=== PATIENT | female | born 1940 | race Caucasian/White ===

== ENCOUNTER 2021-03-06 08:47 | Emergency (ER) | payer MEDICARE, OTHER, SELFPAY ==
--- NOTE | ~2021-03-06 | US_ITS ---
EXAMINATION: US VENOUS ULTRASOUND WITH DOPPLER LOWER EXTREMITY, LEFT CLINICAL INFORMATION: Left lower extremity pain and swelling. Assess for occult DVT. COMPARISON: Radiographs left knee 03/06/2021 TECHNIQUE: Ultrasound of the deep veins is performed from the hip to the calf with compression sonography and color and pulse Doppler assessment. Spectral analysis with color-flow imaging is performed. FINDINGS: There is normal venous compression and respiratory variation and augmented flow. The visualized common femoral vein, superficial femoral vein, profunda femoral vein, popliteal vein, and the trifurcation region shows no evidence of deep venous thrombosis. Popliteal vein is not visualized with certainty. No popliteal fossa cyst demonstrated. US/US venous duplex LE LT IMPRESSION: 1. No DVT demonstrated in the left lower extremity. 2. If the patient's symptoms persist, followup ultrasound in 5 days 7 days might be of value to exclude proximal propagation from a non-visualized calf vein.
--- NOTE | ~2021-03-06 | XR_ITS ---
EXAMINATION: XR KNEE, LEFT CLINICAL INFORMATION: Pain COMPARISON: Previous x-ray May 2017 TECHNIQUE: Four views of the left knee. FINDINGS: Bone alignment is normal. No fracture or dislocation is seen. Joint spaces are normal. There is a small osteophyte at the quadriceps tendon insertion to the patella. There is a small joint effusion. XR/XR knee LT 4V IMPRESSION: Small joint effusion. Small patellar osteophyte.
[2021-03-06 08:56] VITALS: RESP 16; TEMP 37.1; O2SAT 98; BMI 36.6
[2021-03-06 09:03] VITALS: BP 173/75
--- NOTE | 2021-03-06 09:17 | ED.EXTPRO ---
HPI - Extremity Problem General Chief complaint: Extremity Injury, Lower Stated complaint: swollen/painful leg Time Seen by Provider: 03/06/21 08:56 Source: patient and EMS Mode of arrival: EMS Limitations: no limitations History of Present Illness MD Complaint: extremity pain and extremity swelling Onset (ago): day(s) (7) Pain Consistency: constant Location: left and lower extremity Quality: aching and dull Radiation: none Relieving factors: nothing Exacerbating factors: weight bearing and walking Associated symptoms: denies other symptoms Related Data Allergies Allergy/AdvReac Type Severity Reaction Status Date / Time No Known Allergies Allergy Mild NOT Unverified 08/14/20 14:42 [No Known Allergies*] APPLICABLE Review of Systems Review of Systems: Constitutional : No Fever, No Chills ENT/Mouth : No Ear Pain, No Hoarseness, No sore throat Eyes: No Eye Pain, No Swelling, No Redness, No Foreign Body Cardiovascular : No Chest Pain, No SOB Respiratory : No Cough, No Dyspnea Gastrointestinal : No Nausea, No Vomiting, No Diarrhea, No abdominal Pain Genitourinary : No Dysuria, No Hematuria Musculoskeletal : positive joint pain, No Myalgias, pos Joint Swelling Skin : No Skin lacerations, No rash Neuro : No Weakness, No Numbness, No Loss of Consciousness, No Dizziness, No Headache Psych : No Anxiety/Panic, No Depression Heme/Lymph: no easy bruising, no Lymphadenopathy Endocrine : No Polyuria, No Polydipsia All other systems reviewed and are negative [facility] Past Medical History Attestation statement: The following information was validated with the patient. Medical History Anxiety Depressed High cholesterol Hypothyroid Overactive bladder Seizure Social History Social History Alcohol intake: never Smoking Status: Never smoker Use of substances other than those prescribed or required for medical reasons: No Advance Directives: Yes Advance Directives on File: Yes Advance Directives Date on File: 03/06/21 Physical Exam Vital Signs: Vital Signs: Last Vital Signs Temp 98.7 F 03/06/21 08:56 Pulse 60 03/06/21 11:42 Resp 16 03/06/21 11:42 BP 158/69 H 03/06/21 11:42 Pulse Ox 96 03/06/21 11:42 Body Mass Index 36.6 Appearance: Alert. Oriented X3. No acute distress. Eyes: Pupils equal, round and reactive to light. ENT: Pharynx normal. Neck: Normal inspection. Neck supple. CVS: Normal heart rate and rhythm. Pulses normal. Respiratory: No respiratory distress. Breath sounds normal. Abdomen: Soft and nontender. Skin: Skin warm and dry. Normal skin color. Normal skin turgor. Extremities: LLE no erythema or warmth, small effusion of L knee, distal NV intact, swelling into left calf with ttp of L calf Neuro: Oriented X 3. No motor deficit. No sensory deficit. Course Course Course Narrative: stable labs, negative DVT study and negative, labs stable no signs of infection but cannot fully ambulate. Patient placed in physician observation at 1058am. The indication for observation is that the patient needs more time to see if their leg pain improves or they will need to be sent to STR for fall risk At this time the patient is well developed well nourished, lungs clear, CV RRR, abd nontender, neuro is intact. signed out to oncoming provider pending placement MDM - Extremity (Nontraumatic) MDM Narrative Medical decision making narrative: 80 yo female no CP/SOB c/o atraumatic LLE pain into calf will need labs, xray given effusion though no trauma or signs of infection, US to r/o DVT, dispo per results and findings. Lab Data Result diagrams: 03/06/21 09:57 03/06/21 09:56 Labs: Lab Results 03/06/21 03/06/21 03/06/21 Range/Units 09:56 09:57 09:57 WBC 6.7 (4.8-10.8) X10*3/uL RBC 3.92 L (4.20-5.50) X10*6/uL Hgb 12.1 (12.0-16.0) g/dl Hct 38.0 (37-47) % MCV 96.9 (80-98) fL MCH 30.9 (27.0-33.0) pg MCHC 31.8 (31.0-35.0) g/dl RDW 14.4 (11.0-16.0) % Plt Count 184 (160-400) X10*3/uL MPV 11.5 (9.4-12.3) fL Immature Gran % (Auto) 0.3 (0.0-0.4) % Neut % (Auto) 70.6 (45-73) % Lymph % (Auto) 18.2 L (20-40) % Hinds % (Auto) 9.3 (2-11) % Eos % (Auto) 1.3 (0-4) % Baso % (Auto) 0.3 (0-2) % Lymph # (Auto) 1.2 (1.2-4.9) X10*3/uL Hinds # (Auto) 0.6 (0.1-1.2) X10*3/uL Eos # (Auto) 0.1 (0.0-0.4) X10*3/uL Baso # (Auto) 0.0 (0.0-0.2) X10*3/uL Abs Immat Gran (auto) 0.02 (0.00-0.03) X10*3/uL Absolute Neuts (auto) 4.7 (2.0-8.3) X10*3/uL Absolute Nucleated RBC 0.000 (0.0-0.012) X10*3/uL Nucleated RBC % (auto) 0.0 (0.0-0.2) /100WBC PT 11.2 (10.8-13.0) SEC INR 0.9 (0.9-1.1) APTT 29.4 (24.1-38.0) SEC Sodium 141 (135-145) mmol/L Potassium 4.9 (3.3-5.1) mmol/L Chloride 105 (96-108) mmol/L Carbon Dioxide 31 H (22-29) mmol/L Anion Gap 10 L (12-20) BUN 20 H (9-16) mg/dL Creatinine 0.80 (0.5-1.4) mg/dL Estim Creat Clear Calc 58.4 Estimated GFR > 60 Random Glucose 87 (60-115) mg/dL Calcium 9.2 (8.4-10.2) mg/dL Discharge Plan Discharge Clinical Impression: Acute knee pain
--- NOTE | 2021-03-06 09:47 | PC.NURSE ---
bm with minimal assist to comode. pt needed 3 plus assist to get back into bed. pt unable to tolerate weight on leg.
[2021-03-06 10:01] LABS: Basophils Percent Auto 0.3 % (0-2); Eosinophils Absolute Auto 0.1 X10*3/uL (0.0-0.4); Eosinophils Percent Auto 1.3 % (0-4); Hemoglobin 12.1 g/dl (12.0-16.0); Imm Gran Abs Auto 0.02 X10*3/uL (0.00-0.03); Imm Gran Pct Auto 0.3 % (0.0-0.4); Lymphocytes Absolute Auto 1.2 X10*3/uL (1.2-4.9); Lymphocytes Percent Auto 18.2 % (20-40); MANUAL DIFF FLAG NO; Mean Corpuscular HGB Conc 31.8 g/dl (31.0-35.0); Mean Corpuscular Hemoglobin 30.9 pg (27.0-33.0); Mean Corpuscular Volume 96.9 fL (80-98); Mean Platelet Volume 11.5 fL (9.4-12.3); Monocytes Absolute Auto 0.6 X10*3/uL (0.1-1.2); Monocytes Percent Auto 9.3 % (2-11); Neutrophils Absolute Auto 4.7 X10*3/uL (2.0-8.3); Neutrophils Percent Auto 70.6 % (45-73); Platelet Count 184 X10*3/uL (160-400); Red Blood Count 3.92 X10*6/uL (4.20-5.50); Red Cell Distribution Width 14.4 % (11.0-16.0); White Blood Count 6.7 X10*3/uL (4.8-10.8)
[2021-03-06 10:10] LABS: INTERNATIONAL NORM RATIO 0.9 (0.9-1.1); Prothrombin Time 11.2 SEC (10.8-13.0)
[2021-03-06 10:12] LABS: Partial Thromboplastin Time 29.4 SEC (24.1-38.0)
[2021-03-06 10:22] LABS: Anion Gap 10 (12-20); Blood Urea Nitrogen 20 mg/dL (9-16); Calcium 9.2 mg/dL (8.4-10.2); Carbon Dioxide 31 mmol/L (22-29); Chloride 105 mmol/L (96-108); Creatinine Clr Calc Pharmacy 58.4; Estimated Glomerular Filt Rate > 60; Glucose Random 87 mg/dL (60-115); Potassium 4.9 mmol/L (3.3-5.1); Sodium 141 mmol/L (135-145)
[2021-03-06 11:19] VITALS: BP 173/75
[2021-03-06 11:42] VITALS: BP 158/69; PULSE 60; RESP 16; O2SAT 96
--- NOTE | 2021-03-06 12:39 | MHC.CM.ED ---
Patient came to ER due to leg pain. Work up essentially negative. Physical therapy eval completed. Short term rehab is recommended. Attempted to speak to patient's daughter, Yolanda via telephone at [phone]. Yolanda did not answer. Not able to leave a voicemail. Continue to monitor for d/c needs.
--- NOTE | 2021-03-06 13:56 | MHC.CM.ED ---
Received case management consult. Patient came to ER with painful legs. Work up essentially negative. Physical therapy eval completed. Short term rehab is being recommended. Met with patient and daughter Yolanda in regards to discharge planning. Patient lives alone, ambulates with a cane outside and walker inside. No other services at this time. [facility] of [facility] nursing facilities provided to patient and Yolanda from [facility]. [facility] is first choice. Referral made via [employer]. Continue to monitor for d/c needs.
--- NOTE | 2021-03-06 15:13 | MHC.CM.ED ---
[facility] in [place] is able to offer a bed and is in the process of obtaining insurance auth. It is anticipated auth will not be able to obtained before Tuesday. Patient and daughter Yolanda aware. Continue to monitor for d/c needs.
[2021-03-06 18:35] VITALS: BP 169/62; PULSE 81; RESP 18; O2SAT 97
[2021-03-06 23:08] VITALS: RESP 16
--- NOTE | 2021-03-06 23:10 | PC.NURSE ---
pt boosted up in bed, pillows placed under left hip and left knee which pt stated helps with left leg pain. pt has no questions or concerns at this time. no signs of respiratory distress noted. call cevallos in reach.
[2021-03-07] MEDS: Acetaminophen 325 MG TABLET 650 MG PO (01:25)
[2021-03-07 04:53] VITALS: RESP 16
[2021-03-07 04:54] VITALS: RESP 16
[2021-03-07] MEDS: Primidone 50 MG TABLET 100 MG PO (09:29)
[2021-03-07 10:37] VITALS: BP 146/73; PULSE 67; RESP 18; TEMP 37.1; O2SAT 93
--- NOTE | 2021-03-07 11:36 | PC.NURSE ---
Pt resting in bed, this rn helped pt reposition self to R side. Pt denies complaints or needs. Pt appears to be in no apparent distress, rr even and unlabored, skin w/p/d.Pt aware and agreeable to plan of care for STR pending insurance authorization. Call cevallos within reach.
--- NOTE | 2021-03-07 12:06 | PC.NURSE ---
[facility] called to obtain hospital bed for pts comfort.
--- NOTE | 2021-03-07 14:06 | PC.NURSE ---
Pt moved into hospital bed. Pt ambulating around room independently but does require some assistance using bathroom and ambulating longer distances.
--- NOTE | 2021-03-07 14:48 | MHC.CM.PN ---
Pt is boarding in the ED awaiting [employer] authorization for transfer to [facility] for STR. No authorization as of this note. Pt and ED care team aware of [employer] auth barrier to d/c.
[2021-03-07 16:26] VITALS: BP 145/78; PULSE 81; RESP 16; TEMP 37.1; O2SAT 95
--- NOTE | 2021-03-07 16:26 | PC.NURSE ---
Pt sleeping on and off throughout the day, pleasant interactions, able to make needs known, helped elevate legs. Pt denies needs or complaints. VSS, skin w/p/d. Pt offered assistance with personal hygeine and declined at this time.
[2021-03-07 20:23] VITALS: BP 152/83; PULSE 75; RESP 16; O2SAT 95
[2021-03-07] MEDS: Divalproex Sodium ER 500 MG TAB.ER.24H PO (21:08)
[2021-03-07] MEDS: traZODone HCL 50 MG TABLET PO (21:08)
[2021-03-07] MEDS: Tolterodine Tartrate LA 4 MG CAP.ER.24H PO (21:37)
[2021-03-07 22:05] LABS: COVID-19 Test Negative (Negative); IDNOW Serial# 9DD0AD1C
[2021-03-08 04:48] VITALS: RESP 18
--- NOTE | 2021-03-08 05:07 | PC.NURSE ---
MULTIPLE TRIPS TO COMMODE, PT EXPERIENCING URINARY RETENTION. WILL TRY AND OBTAIN SAMPLE.
[2021-03-08 05:54] VITALS: BP 138/77; PULSE 75; RESP 16; TEMP 36.4; O2SAT 94
[2021-03-08 06:23] LABS: Glucose Urine UA NEG (NEG); Leukocyte Esterase Urine NEG (NEG); Nitrite Urine NEG (NEG); Specific Gravity - Urine 1.015 (1.005-1.025); Urine Blood 1+ (NEG); Urine Ketones NEG (NEG); Urine Protein NEG (NEG-TRACE)
[2021-03-08 06:29] LABS: Appearance Urine CLEAR; Color Urine STRAW
[2021-03-08] MEDS: Levothyroxine Sodium 88 MCG TABLET PO (06:36)
[2021-03-08 06:49] LABS: Bacteria Urine TRACE /LPF; RBC Urine 0-2 /HPF (0); Squamous Epithelial Cell Urine 2+ /LPF; WBC Urine 0-2 /HPF (0-4)
[2021-03-08] MEDS: Divalproex Sodium ER 500 MG TAB.ER.24H PO ×2 (10:06→21:52)
[2021-03-08] MEDS: Escitalopram Oxalate 10 MG TABLET PO (10:07)
[2021-03-08] MEDS: Atorvastatin Calcium 10 MG TABLET PO (10:07)
[2021-03-08] MEDS: Mirtazapine 15 MG TABLET PO (10:07)
--- NOTE | 2021-03-08 16:19 | MHC.CM.ED ---
Addendum entered by Makayla Sheffield 03/08/21 16:21: Correction: Pt is awaiting transfer to [facility] and NOT [facility]. Insurance information is correct Original Note: Pt remains holding for [employer] auth to transfer to [facility]. No authorization per facility at the time of this note. SNF to contact [employer] on 03/09. Pt aware of plan to hold for SNF transfer.
[2021-03-08 21:52] VITALS: BP 146/80; PULSE 73; RESP 15; TEMP 37.1; O2SAT 94
[2021-03-08] MEDS: Tolterodine Tartrate LA 4 MG CAP.ER.24H PO (21:52)
[2021-03-08] MEDS: traZODone HCL 50 MG TABLET PO (21:52)
[2021-03-08] MEDS: Primidone 50 MG TABLET 100 MG PO (21:52)
[2021-03-09] MEDS: Acetaminophen 325 MG TABLET 650 MG PO (02:29)
[2021-03-09] MEDS: clonazePAM 0.5 MG TABLET PO (02:30)
[2021-03-09 06:02] VITALS: BP 142/84; PULSE 79; RESP 16; O2SAT 93
[2021-03-09] MEDS: Levothyroxine Sodium 88 MCG TABLET PO (06:03)
--- NOTE | 2021-03-09 07:33 | PC.NURSE ---
pt is a/o x 3 no sob/josé miguel noted skin pink warm dry speaks in full sentences. pt is aware of plan of care for rehab. pt is sitting up in chair in recliner. pt ate 100% of breakfast.
[2021-03-09 07:36] VITALS: BP 125/72; PULSE 78; RESP 16; TEMP 36.7; O2SAT 95
--- NOTE | 2021-03-09 08:59 | MHC.CM.PN ---
PT CURRENTLY AWAITING STR PLACEMENT. [facility], PTS PREFERRED FACILITY IS OFFERING A BED PENDING INSURANCE AUTH. UPDATES WERE SENT TO THEM VIA [employer].
[2021-03-09 09:46] VITALS: BP 149/60; PULSE 75; RESP 14; O2SAT 95
[2021-03-09] MEDS: Atorvastatin Calcium 10 MG TABLET PO (09:49)
[2021-03-09] MEDS: Mirtazapine 15 MG TABLET PO (09:49)
[2021-03-09] MEDS: Primidone 50 MG TABLET 100 MG PO (09:49)
[2021-03-09] MEDS: Divalproex Sodium ER 500 MG TAB.ER.24H PO (09:49)
[2021-03-09] MEDS: Escitalopram Oxalate 10 MG TABLET PO (09:49)
[2021-03-09 11:11] VITALS: BP 129/72; PULSE 71; RESP 16; O2SAT 96
--- NOTE | 2021-03-09 13:10 | PC.NURSE ---
pt aware of plan of care for transfer to snf for rehab via ambulance.
[2021-03-09 13:50] VITALS: BP 130/70; PULSE 78; RESP 16; TEMP 36.7; O2SAT 97
--- NOTE | 2021-03-09 14:13 | MHC.CM.PN ---
[facility] NOW HAS INSURANCE AUTH FOR PT TO [facility]NE ADMITTED FOR STR. CM CONTACTED PTS DAUGHTER, EMILIA ([phone]) WHO IS AWARE AND REPORTS SHE WILL BRING CLOTHING TO PT AT FACILITY. PT BEING TRANSPORTED AT 1400 HOUTS VIA [facility]. ACCEPTING MD AT [facility] IS DR VIDAL.
--- NOTE | 2021-03-09 14:34 | PC.NURSE ---
nurse to nurse given to elbert (rn) at [address] [place] [address] rehab ([phone]).
== END 2021-03-09 14:10 | disposition skilled nursing facility (03) ==
PROVIDERS: Nurse Practitioner Primary Care; Student in an Organized Health Care Education/Training Program; Emergency Provider Emergency Medicine; PCP Nurse Practitioner Family
DX: M25.562 Pain in left knee (principal); M25.462 Effusion, left knee; R60.0 Localized edema
CPT/HCPCS: 36415; 73564; 80048; 81001; 85025; 85610; 85730; 87635; 93971; 97162; 99284; 99285

== ENCOUNTER 2021-06-08 17:25 | Emergency (ER) | payer MEDICARE, OTHER, SELFPAY ==
--- NOTE | ~2021-06-08 | CT_ITS ---
EXAMINATION: CT HEAD WITHOUT CONTRAST CT FACIAL BONES WITHOUT CONTRAST CT CERVICAL SPINE WITHOUT CONTRAST CLINICAL INFORMATION: Trauma COMPARISON: CT head September 12, 2019. TECHNIQUE: Imaging was performed from the skull base to vertex without intravenous administration of contrast. In addition, helical noncontrast CT imaging was acquired through the cervical spine and facial bones and source images were reviewed along with axial reconstructions and sagittal and coronal MPRs. [This CT examination was performed using dose optimization techniques as appropriate, variously including the following: *Automated exposure control *Adjustment of mA and/or kV according to patient size (this includes techniques or standardized protocols for targeted exams where dose is matched to indication/reason for exam; i.e. extremities or head) *Use of iterative reconstruction technique] DLP: 1385 mGy-cm FINDINGS: HEAD: No intracranial mass, hemorrhage, or midline shift is visualized. There is generalized global volume loss. There is mild prominence of the ventricles and the sulci . There are vascular calcifications of the internal carotid arteries bilaterally. No extra-axial collections are identified. There is prior right-sided partial resection mastoid air cells. There is fluid opacifying the residual mastoid air cells on the right and also opacifying the left mastoid air cells. There is fluid in the left middle ear cavity around the ossicles. FACIAL BONES: There is no evidence of an acute facial bone fracture. The paranasal sinuses are well aerated.. The orbits are unremarkable in appearance. There is moderate degenerative change of the left TMJ joint joint is narrowed and there are small marginal bone spurs of the mandibular condyle. There is faint calcification at the joint space. CERVICAL SPINE: There is no evidence of acute cervical spine fracture. Vertebral bodies remain normal in height. There is multilevel degenerative spondylosis of cervical disc height narrowing, vertebral endplate spurring and facet joint arthrosis.. No pre- or paravertebral soft tissue abnormality is identified. Limited assessment of the lung apices is unremarkable. CT/CT cervical spine wo con IMPRESSION: 1. No acute intracranial process or discrete facial bone fracture. 2. No acute cervical spine fracture or traumatic subluxation.
[2021-06-08 17:30] VITALS: BP 148/78; PULSE 88; O2SAT 97
[2021-06-08 17:46] VITALS: BP 140/90; PULSE 80; RESP 16; TEMP 36.8; O2SAT 93; BMI 34.4
--- NOTE | 2021-06-08 17:50 | ED_ITS ---
HPI - Fall General Chief Complaint: Fall Stated Complaint: fall Source: patient Mode of arrival: ambulatory Limitations: no limitations History of Present Illness HPI Narrative: Patient presents to ED for for fall. After patient and daughter. Patient was leaving supermarket and she slipped on a banana and fell face 1st onto the ground and her pear is imbedded into her skull. Patient denies having any dizziness, chest pain, abdominal pain, headache, weakness before falling to the ground. Once again patient daughter states she slipped on a peel of nursy TODD complaint: fall Related Data Home Medications Medication Instructions Recorded Confirmed Vitamin D3 1,000 units PO DAILY 03/07/21 03/07/21 aspirin 81 mg PO DAILY 03/07/21 03/07/21 atorvastatin 1 tab PO DAILY 03/07/21 03/07/21 citalopram 1 tab PO DAILY 03/07/21 03/07/21 clonazepam 1 tab PO BID PRN 03/07/21 03/07/21 diclofenac sodium See Rx Instructions .ROUTE .COMPLEX 03/07/21 03/07/21 levothyroxine 1 tab PO DAILY 03/07/21 03/07/21 magnesium 250 mg PO DAILY 03/07/21 03/07/21 mirtazapine 1 tab PO DAILY 03/07/21 03/07/21 multivitamin 1 tab PO DAILY 03/07/21 03/07/21 nystatin 1 appl TOPICAL BID 03/07/21 03/07/21 primidone 2 tab PO BID 03/07/21 03/07/21 solifenacin 5 mg PO BEDTIME 03/07/21 03/07/21 trazodone 1 tab PO BEDTIME 03/07/21 03/07/21 Allergies Allergy/AdvReac Type Severity Reaction Status Date / Time No Known Allergies Allergy Mild NOT Verified 06/08/21 18:03 [No Known Allergies*] APPLICABLE Review of Systems Review of Systems: Yes all other systems are reviewed and are negative Constitutional: Constitutional: Reports as per HPI, Reports no additional constitutional complaints and Reports headache(s) Eyes: Eyes: Reports as per HPI and Reports no additional eye complaints ENT: Reports system reviewed and no additional complaints, except as documented, Reports as per HPI and Reports headache(s) Cardiovascular: Cardiovascular: Reports as per HPI and Reports no additional cardiovascular complaints Respiratory: Respiratory: Reports as per HPI and Reports no additional respiratory complaints Gastrointestinal: Gastrointestinal: Reports as per HPI and Reports no additional gastrointestinal complaints Genitourinary: Genitourinary: Reports no additional female genitourinary complaints and Reports as per HPI Musculoskeletal: Musculoskeletal: Reports no additional musculoskeletal complaints and Reports as per HPI Neurologic: Reports system reviewed and no additional complaints, except as documented, Reports as per HPI and Reports headache(s) [facility] Past Medical History Medical History Anxiety Depressed High cholesterol Hypothyroid Overactive bladder Seizure Social History Social History Alcohol intake: never Smoked in Last 30 Days: No Use of substances other than those prescribed or required for medical reasons: No Advance Directives: Yes Advance Directives on File: Yes Advance Directives Date on File: 03/06/21 Physical Exam Vital Signs: Vital Signs: Last Vital Signs Temp 98.2 F 06/08/21 17:52 Pulse 80 06/08/21 17:52 Resp 16 06/08/21 17:52 BP 140/80 H 06/08/21 17:52 Pulse Ox 93 06/08/21 17:52 Body Mass Index 34.4 Const: General: cooperative, healthy appearing, comfortable, no acute distress, well developed, alert and awake Orientation/consciousness: patient oriented x3 HENMT: Head: Yes normal to inspection, Yes No palpable skull fracture present, Yes normocephalic, Yes atraumatic and No abrasion Head images: 1. Superficial laceration with embedded neno 2. Superficial linear laceration Eyes: General: appearance normal, both eyes and all related structures Neck: Neck: Yes normal visual inspection, Yes full ROM, Yes no lymphadenopathy, Yes no meningeal signs, Yes trachea midline, Yes supple and No tender Chest: Chest palpation & inspection: normal inspection of the chest and normal palpation of entire chest wall Breast/axilla inspection: normal inspection of the breasts Resp: Effort & Inspection: normal respiratory effort and able to speak in complete sentences Auscultation: clear to auscultation bilaterally, no crackles, no rales, no rhonchi and no wheezes Cardio: Jugular venous distension: no JVD Heart sounds: S1 normal heart sound present and S2 normal heart sound present GI: Inspection: Yes normal to inspection and No abdominal wall ecchymosis P alpation (GI): Soft to palpation, not firm, nontender, no guarding and not rigid : General: No CVA tenderness and Yes no CVA tenderness Back/Spine/Pelvis: Back: no CVA tenderness, No CVA tenderness and No back tenderness Skin: General skin exam: no rashes or lesions noted and elasticity normal Neuro: General: patient oriented x3, gait normal, no meningeal signs and CN's II-XI intact bilaterally Cranial nerves: Yes CN's II-XII intact bilaterally Extrem: General: Yes normal to inspection and Yes full ROM Psych: Appearance: grossly normal, well kempt and not disheveled Course Course Course Narrative: Patient will have imaging of the head face and neck ordered. To them ordered. No labs indicated. This was a mechanical fall. Reevaluation(s) Reevaluation #1: Images negative for any fracture or bleed. Patient given Tdap injection. Both lacerations clean with sterile normal saline and Betadine iodine. 10 mL of 2% lidocaine was used to anesthetize both lacerations. Size 4 nylon suture was used. First laceration 3 sutures were placed. Second laceration 3 sutures were placed. Patient is safe for discharge Time: 19:54 MDM - Fall MDM Narrative Medical decision making narrative: Head injury. Facial lack Discharge Plan Discharge Clinical Impression: Head injury, Laceration Patient Disposition: Home, Self-Care Instructions: Head Injury (ED), Facial Laceration (ED) Additional Instructions: Your head CT, cervical spine, and facial CT came back negative for any brain bleed, neck fracture, any facial fracture. You received tetanus injection in the ED. return to the ED immediately for any headache, dizziness, nausea, vomiting, fever, chills, pus discharge, foul odor, rectal bleeding, abdominal pain, chest pain, shortness of breath, or any other concerning symptoms. Return to the ED or PCP in 7 days for facial sutures. Prescriptions: No [facility] trazodone 50 mg tablet 1 tab PO BEDTIME RF: 0 atorvastatin 10 mg tablet 1 tab PO DAILY RF: 0 clonazepam 0.5 mg tablet 1 tab PO BID PRN (Reason: anxiety) RF: 0 levothyroxine 88 mcg tablet 1 tab PO DAILY RF: 0 citalopram 20 mg tablet 1 tab PO DAILY RF: 0 mirtazapine 15 mg tablet 1 tab PO DAILY RF: 0 aspirin 81 mg PO DAILY RF: 0 Vitamin D3 1,000 units PO DAILY RF: 0 magnesium 250 mg PO DAILY RF: 0 multivitamin 1 tab PO DAILY RF: 0 nystatin 1 appl topical BID RF: 0 solifenacin 5 mg PO BEDTIME RF: 0 diclofenac sodium See Rx Instructions .ROUTE .COMPLEX RF: 0 primidone 50 mg tablet 2 tab PO BID RF: 0 Referrals: Krystal Medrano NP [Primary Care Provider] - 2 days (Mechanical fall. facial injury. laceration repaired) Interventions: ED Discharge Assessment Last Done: 06/08/21 20:47 Discharge Date/Time: 06/08/21 20:48
[2021-06-08 17:52] VITALS: BP 140/80; PULSE 80; RESP 16; TEMP 36.8; O2SAT 93
[2021-06-08] MEDS: Diphth,Pertus(ACell),Tet Adult 0.5 ML SYRINGE IM (18:04)
--- NOTE | 2021-06-08 18:16 | PC.NURSE ---
Patient received tetnas vaccine. Ct exam completed.
[2021-06-08] MEDS: Lidocaine HCl 2 % MPF 5 ML VIAL INFILTRATI ×2 (20:06)
== END 2021-06-08 20:48 | disposition home or self-care (01) ==
PROVIDERS: Emergency Provider Internal Medicine; PCP Nurse Practitioner Family
DX: S01.82XA Laceration with foreign body of other part of head, initial encounter (principal); W01.0XXA Fall on same level from slipping, tripping and stumbling without subsequent striking against object, initial encounter; Y93.01 Activity, walking, marching and hiking; Y92.512 Supermarket, store or market as the place of occurrence of the external cause; Y99.9 Unspecified external cause status
CPT/HCPCS: 12011; 70450; 70486; 72125; 90471; 90715; 99284

== ENCOUNTER 2021-07-20 13:54 | Outpatient (REF) | payer MEDICARE, SELFPAY ==
--- NOTE | ~2021-07-20 | MM_ITS ---
EXAMINATION: MM SCREENING DIGITAL BREAST TOMOSYNTHESIS, BILATERAL CLINICAL INFORMATION: Screening. Asymptomatic. The lifetime risk of breast cancer based on the Tyrer-Cuzick Model is 2%. COMPARISON: Mammography: 07/18/2020, 02/26/2019, 02/13/2018 TECHNIQUE: Digital breast tomosynthesis is performed in both the craniocaudal and mediolateral oblique views along with computer-aided detection (CAD). Synthesized 2D images are generated from the tomosynthesis. FINDINGS: The breasts are almost entirely fatty (ACR BI-RADS breast composition Category a). There is linear nonanatomical increased attenuation at the bilateral anterior breasts consistent with artifact from overlying mammo pad. The breast parenchymal pattern is similar to prior studies. Background stromal and fibroglandular markings are stable. There is no developing density or interval mass or architectural abnormality. Again, there is intramammary node posterior upper outer left breast and a stable oval nodule anterior central 11:00 right breast. There are no abnormal calcifications. The axilla and skin contours are unremarkable. MM/MM tomosynthesis screening BI IMPRESSION: There are no significant changes from prior study. ASSESSMENT: BI-RADS 2: Benign RECOMMENDATION: Routine annual mammography screening. This patient's information was entered into a reminder system with a target due date for their next mammogram.
== END 2021-07-20 13:55 | disposition home or self-care (01) ==
LOC: HO.MAMMO 13:54
PROVIDERS: Visit Provider Nurse Practitioner Family
DX: Z12.31 Encounter for screening mammogram for malignant neoplasm of breast (principal)
CPT/HCPCS: 77063; 77067

== ENCOUNTER 2022-03-08 17:56 | Emergency (ER) | payer MEDICARE, OTHER, SELFPAY ==
--- NOTE | ~2022-03-08 | US_ITS ---
EXAMINATION: US VENOUS ULTRASOUND WITH DOPPLER LOWER EXTREMITY, LEFT CLINICAL INFORMATION: Pain. COMPARISON: Left lower extremity deep vein thrombosis 03/06/2021. TECHNIQUE: Ultrasound of the deep veins is performed from the hip to the calf with compression sonography and color and pulse Doppler assessment. Spectral analysis with color-flow imaging is performed. FINDINGS: There is normal venous compression and respiratory variation and augmented flow. The visualized common femoral vein, superficial femoral vein, profunda femoral vein, popliteal vein, and the trifurcation region shows no evidence of deep venous thrombosis. There is no significant popliteal fossa cyst. If the patient's symptoms persist, followup ultrasound in 5 days 7 days might be of value to exclude proximal propagation from a non-visualized calf vein. US/US venous duplex LE IMPRESSION: No DVT demonstrated in the left lower extremity.
[2022-03-08 19:53] VITALS: BP 162/78; PULSE 68; RESP 18; TEMP 36.8; O2SAT 95; BMI 33.6
[2022-03-08 20:10] LABS: MANUAL DIFF FLAG NO
[2022-03-08 20:17] LABS: Basophils Percent Auto 0.3 % (0-2); Eosinophils Absolute Auto 0.1 X10*3/uL (0.0-0.4); Eosinophils Percent Auto 1.1 % (0-4); Hematocrit 38.1 % (37.0-47.0); Hemoglobin 12.4 g/dl (12.0-16.0); Imm Gran Abs Auto 0.02 X10*3/uL (0.00-0.03); Imm Gran Pct Auto 0.2 % (0.0-0.4); Lymphocytes Absolute Auto 1.5 X10*3/uL (1.2-4.9); Lymphocytes Percent Auto 16.9 % (20-40); Mean Corpuscular HGB Conc 32.5 g/dl (31.0-35.0); Mean Corpuscular Hemoglobin 31.2 pg (27.0-33.0); Mean Corpuscular Volume 95.7 fL (80.0-98.0); Mean Platelet Volume 10.8 fL (9.4-12.3); Monocytes Absolute Auto 0.6 X10*3/uL (0.1-1.2); Monocytes Percent Auto 7.3 % (2-11); Neutrophils Absolute Auto 6.5 x10*3/uL (2.0-8.3); Neutrophils Percent Auto 74.2 % (45-73); Platelet Count 254 X10*3/uL (160-400); Red Blood Count 3.98 X10*6/uL (4.20-5.50); Red Cell Distribution Width 14.6 % (11.0-16.0); White Blood Count 8.8 X10*3/uL (4.8-10.8)
[2022-03-08 20:22] LABS: Prothrombin Time 11.8 SEC (9.9-13.0)
[2022-03-08 20:24] LABS: Partial Thromboplastin Time 28.8 SEC (24.1-38.0)
[2022-03-08 20:29] LABS: Alanine Aminotransferase 19 U/L (0-31); Albumin Level 4.3 g/dL (3.5-5.0); Alkaline Phosphatase 100 U/L (39-117); Anion Gap 14 (12-20); Aspartate Amino Transferase 20 U/L (5-31); Bilirubin Total < 0.2 mg/dL (0.0-1.0); Blood Urea Nitrogen 18 mg/dL (9-16); Calcium 9.8 mg/dL (8.4-10.2); Carbon Dioxide 27 mmol/L (22-29); Chloride 103 mmol/L (96-108); Estimated Glomerular Filt Rate > 60; Glucose Random 109 mg/dL (60-115); Potassium 4.6 mmol/L (3.3-5.1); Sodium 139 mmol/L (135-145); Total Protein 7.4 g/dL (6.5-8.0)
[2022-03-08 22:16] LABS: D Dimer High Sensitivity 296 NG/ML
--- NOTE | 2022-03-08 23:03 | ED.LOWEXIN ---
HPI - Extremity Injury (Lower) General Chief Complaint: Extremity Injury, Lower Stated Complaint: R/O DVT Time Seen by Provider: 03/08/22 21:45 Source: patient Mode of arrival: wheelchair Limitations: no limitations History of Present Illness HPI Narrative: Patient presents to the emergency department for evaluation left lower extremity pain and swelling 1. Last year she had an issue with ?arthritis? in leg where she developed swelling past, had intermittent issues swelling since then. However swelling extending into her foot and the level of pain she is experiencing is not consistent with her prior experience. Fevers, chills headache chest pain, palpitations, shortness breath, dyspnea on exertion, precipitating injury, numbness or tingling in the leg, prior history of DVT/PE, personal history of cancer, long-term anticoagulation use, recent immobilization/hospitalization. Related Data Home Medications Medication Instructions Recorded Confirmed Vitamin D3 1,000 units PO DAILY 03/07/21 03/07/21 aspirin 81 mg PO DAILY 03/07/21 03/07/21 atorvastatin 10 mg tablet 1 tab PO DAILY 03/07/21 03/07/21 citalopram 20 mg tablet 1 tab PO DAILY 03/07/21 03/07/21 clonazepam 0.5 mg tablet 1 tab PO BID PRN 03/07/21 03/07/21 diclofenac sodium See Rx Instructions .ROUTE .COMPLEX 03/07/21 03/07/21 levothyroxine 88 mcg tablet 1 tab PO DAILY 03/07/21 03/07/21 magnesium 250 mg PO DAILY 03/07/21 03/07/21 mirtazapine 15 mg tablet 1 tab PO DAILY 03/07/21 03/07/21 multivitamin 1 tab PO DAILY 03/07/21 03/07/21 nystatin 1 appl TOPICAL BID 03/07/21 03/07/21 primidone 50 mg tablet 2 tab PO BID 03/07/21 03/07/21 solifenacin 5 mg PO BEDTIME 03/07/21 03/07/21 trazodone 50 mg tablet 1 tab PO BEDTIME 03/07/21 03/07/21 Allergies Allergy/AdvReac Type Severity Reaction Status Date / Time No Known Allergies Allergy Mild NOT Verified 06/08/21 18:03 [No Known Allergies*] APPLICABLE Review of Systems Review of Systems: Constitutional: No weight loss, fever, chills, weakness or fatigue. HEENT: No vision changes. No congestion. No sore Skin: No rash or itching. Cardiovascular: Positive pedal edema. No chest pain, chest pressure or chest discomfort. No palpitations Respiratory: No shortness of breath, cough or sputum production. Gastrointestinal: No anorexia, nausea, vomiting or diarrhea. No abdominal pain Genitourinary: No burning micturition. No urinary frequency or incontinence. Neurologic: No headache, dizziness, syncope, unilateral weakness, ataxia, numbness or tingling in the extremities. Musculoskeletal: Positive left leg pain Hematologic: No bleeding or bruising. Lymphatics: No enlarged lymph nodes. Endocrine: No polyuria or polydipsia. Yes all other systems are reviewed and are negative PMFSH Past Medical History Attestation statement: The following information was validated with the patient. Source: old records reviewed Medical History Anxiety Depressed High cholesterol Hypothyroid Overactive bladder Seizure Social History Social History Alcohol intake: never Advance Directives: Yes Advance Directives on File: Yes Advance Directives Date on File: 03/06/21 Physical Exam Vital Signs: Vital Signs: Last Vital Signs Temp 98.2 F 03/08/22 19:53 Pulse 68 03/08/22 19:53 Resp 18 03/08/22 19:53 BP 162/78 H 03/08/22 19:53 Pulse Ox 95 03/08/22 19:53 BMI result Body Mass Index 33.6 Vital signs have been reviewed as normal and appeared to be correct. Blood pressure elevated 162/78 Heart rate normal.? Respiration rate normal. Temperature normal.? Oxygen saturation normal. Appearance: Alert.?Oriented to person, place and time. No acute distress.?Normal affect. Eyes: Pupils equal, round and reactive to light.? ENT: Pharynx normal.?? Neck: Normal inspection.? Neck supple.?? CVS: Heart sounds normal. Normal heart rate and rhythm.? Pulses normal.?? Respiratory: No respiratory distress.? Lung sounds clear to auscultation bilaterally?? Abdomen: Soft and non-tender. ?? Skin: Skin warm and dry.? Normal skin color.? ? Extremities: Bilateral lower extremity pedal edema. 2+ right, 3+ on the left. Left calf tenderness to palpation. No erythema, no warmth. Sensation intact. Palpable DP/PT pulse 2 +bilaterally Neuro: Moves all extremities spontaneously. Sensation intact bilaterally. No focal neuro deficits. Ambulates with antalgic steady gait. Course Course Course Narrative: Patient is a 81-year-old female with a history of anxiety, depression, hypercholesterolemia, hypothyroidism, seizure, tremor. Presenting to the emergency department for evaluation of left greater than right lower extremity swelling neck pain. Was referred by her primary care provider to the emergency department to rule out DVT. CBC and CMP are overall unremarkable. D-dimer is elevated at 296 therefore will obtain venous duplex ultrasound. Overall she is well-appearing, nontoxic. Ambulatory at baseline with a walker. Ambulatory in the emergency department. She does report improvement in her pain with just resting and sitting in the wheelchair. Not consistent with fracture, dislocation, congestive heart failure, cellulitis. Reevaluation(s) Reevaluation #1: US of the left lower extremity reveals no DVT. Discussed these findings with the patient and her daughter advised rest, ice/heat, Tylenol as needed, elevation of the lower extremity, outpatient follow-up with primary care provider, advised reasons to return back to the emergency department, all questions were answered, agreeable plan of care for discharge home. MDM - Extremity Injury (Lower) Medical Records Attestation: I reviewed the patient's medical records. Lab Data Attestation: I reviewed the patient's lab results. Result diagrams: 03/08/22 20:05 03/08/22 20:05 Labs: Lab Results 03/08/22 03/08/22 03/08/22 Range/Units 20:05 20:05 20:05 WBC 8.8 (4.8-10.8) X10*3/uL RBC 3.98 L (4.20-5.50) X10*6/uL Hgb 12.4 (12.0-16.0) g/dl Hct 38.1 (37.0-47.0) % MCV 95.7 (80.0-98.0) fL MCH 31.2 (27.0-33.0) pg MCHC 32.5 (31.0-35.0) g/dl RDW 14.6 (11.0-16.0) % Plt Count 254 (160-400) X10*3/uL MPV 10.8 (9.4-12.3) fL Immature Gran % (Auto) 0.2 (0.0-0.4) % Neut % (Auto) 74.2 H (45-73) % Lymph % (Auto) 16.9 L (20-40) % [place] % (Auto) 7.3 (2-11) % Eos % (Auto) 1.1 (0-4) % Baso % (Auto) 0.3 (0-2) % Lymph # (Auto) 1.5 (1.2-4.9) X10*3/uL [place] # (Auto) 0.6 (0.1-1.2) X10*3/uL Eos # (Auto) 0.1 (0.0-0.4) X10*3/uL Baso # (Auto) 0.0 (0.0-0.2) X10*3/uL Abs Immat Gran (auto) 0.02 (0.00-0.03) X10*3/uL Absolute Neuts (auto) 6.5 (2.0-8.3) x10*3/uL Absolute Nucleated RBC 0.000 (0.0-0.012) X10*3/uL Nucleated RBC % (auto) 0.0 (0.0-0.2) /100WBC PT 11.8 (9.9-13.0) SEC INR 1.0 (0.9-1.1) APTT 28.8 (24.1-38.0) SEC D-Dimer High Sensitivty 296 NG/ML Sodium 139 (135-145) mmol/L Potassium 4.6 (3.3-5.1) mmol/L Chloride 103 (96-108) mmol/L Carbon Dioxide 27 (22-29) mmol/L Anion Gap 14 (12-20) BUN 18 H (9-16) mg/dL Creatinine 0.83 (0.5-1.4) mg/dL Estim Creat Clear Calc 55.0 Estimated GFR > 60 Random Glucose 109 (60-115) mg/dL Calcium 9.8 D (8.4-10.2) mg/dL Total Bilirubin < 0.2 (0.0-1.0) mg/dL AST 20 (5-31) U/L ALT 19 (0-31) U/L Alkaline Phosphatase 100 (39-117) U/L Total Protein 7.4 (6.5-8.0) g/dL Albumin 4.3 (3.5-5.0) g/dL Imaging Data Venous US: Radiologist's impression: FINDINGS: There is normal venous compression and respiratory variation and augmented flow. The visualized common femoral vein, superficial femoral vein, profunda femoral vein, popliteal vein, and the trifurcation region shows no evidence of deep venous thrombosis. ? There is no significant popliteal fossa cyst. If the patient's symptoms persist, followup ultrasound in 5 days 7 days might be of value to exclude proximal propagation from a non-visualized calf vein. US/US venous duplex LE LT IMPRESSION: No DVT demonstrated in the left lower extremity. Discharge Plan Discharge Clinical Impression: Edema of left lower leg Patient Disposition: Home, Self-Care Instructions: Leg Edema (ED) Additional Instructions: The ultrasound of your leg revealed that you do not have a blood clot. Your blood work is normal. Please contact your primary care provider to schedule a follow-up visit within 1-3 days. Return to the emergency department with any new or worsening symptoms or concerns. Prescriptions: No Action trazodone 50 mg tablet 1 tab PO BEDTIME 0RF atorvastatin 10 mg tablet 1 tab PO DAILY 0RF clonazepam 0.5 mg tablet 1 tab PO BID PRN (Reason: anxiety) 0RF levothyroxine 88 mcg tablet 1 tab PO DAILY 0RF citalopram 20 mg tablet 1 tab PO DAILY 0RF mirtazapine 15 mg tablet 1 tab PO DAILY 0RF aspirin 81 mg PO DAILY 0RF Vitamin D3 1,000 units PO DAILY 0RF Rx Instructions: 1,000 iu, 25mcg magnesium 250 mg PO DAILY 0RF multivitamin 1 tab PO DAILY 0RF nystatin 1 appl topical BID 0RF Rx Instructions: apply to breast, 1000,000 units solifenacin 5 mg PO BEDTIME 0RF diclofenac sodium See Rx Instructions .ROUTE .COMPLEX 0RF Rx Instructions: 1% gel 2 grams 3 x daily primidone 50 mg tablet 2 tab PO BID 0RF
[2022-03-09 00:01] VITALS: BP 167/93; PULSE 69; RESP 18; O2SAT 95
== END 2022-03-09 00:08 | disposition home or self-care (01) ==
PROVIDERS: Emergency Provider Emergency Medicine; PCP Nurse Practitioner Family
DX: M79.662 Pain in left lower leg (principal); R60.0 Localized edema; E78.5 Hyperlipidemia, unspecified; Z79.82 Long term (current) use of aspirin; Z79.02 Long term (current) use of antithrombotics/antiplatelets; Z79.899 Other long term (current) drug therapy
CPT/HCPCS: 36415; 80053; 85025; 85379; 85610; 85730; 93971; 99283; 99284

== ENCOUNTER 2022-07-22 12:53 | Outpatient (REF) | payer MEDICARE, OTHER, SELFPAY ==
--- NOTE | ~2022-07-22 | MM_ITS ---
EXAMINATION: MM SCREENING DIGITAL BREAST TOMOSYNTHESIS, BILATERAL CLINICAL INFORMATION: Screening. Asymptomatic. The lifetime risk of breast cancer based on the Tyrer-Cuzick Model is 1.3%. COMPARISON: Mammography: July 20, 2021 and studies dating back to December 13, 2013 TECHNIQUE: Digital breast tomosynthesis is performed in both the craniocaudal and mediolateral oblique views along with computer-aided detection (CAD). Synthesized 2D images are generated from the tomosynthesis. FINDINGS: The breasts are almost entirely fatty (ACR BI-RADS breast composition Category a). There are no significant masses, abnormal calcifications, or other abnormalities. MM/MM tomosynthesis screening BI IMPRESSION: No significant changes from prior exam. ASSESSMENT: BI-RADS 1: Negative RECOMMENDATION: Routine annual mammography screening. This patient's information was entered into a reminder system with a target due date for their next mammogram.
== END 2022-07-22 12:54 | disposition home or self-care (01) ==
LOC: HO.MAMMO 12:53
PROVIDERS: Visit Provider Nurse Practitioner Family
DX: Z12.31 Encounter for screening mammogram for malignant neoplasm of breast (principal)
CPT/HCPCS: 77063; 77067

== ENCOUNTER 2022-10-20 10:34 | Emergency (ER) | payer MEDICARE, OTHER, SELFPAY ==
--- NOTE | ~2022-10-20 | CT_ITS ---
EXAMINATION: CT HEAD WITHOUT CONTRAST CLINICAL INFORMATION: Patient fell on on her head. COMPARISON: 06/08/2021 TECHNIQUE: Contiguous axial imaging was performed from the skull base to vertex without intravenous administration of contrast. This CT examination was performed using dose optimization techniques as appropriate, variously including the following: *Automated exposure control *Adjustment of mA and/or kV according to patient size (this includes techniques or standardized protocols for targeted exams where dose is matched to indication/reason for exam; i.e. extremities or head) *Use of iterative reconstruction technique DLP: 767 mGy-cm FINDINGS: No intra or extra-axial fluid collection or hemorrhage, mass, or mass effect. Sulci and ventricles are age-appropriate. Calvarium intact. CT/CT head/brain wo IV con IMPRESSION: No acute intracranial pathology.
--- NOTE | ~2022-10-20 | CT_ITS ---
EXAMINATION: CT CERVICAL SPINE WITHOUT CONTRAST CLINICAL INFORMATION: Fall. Head trauma. COMPARISON: Previous CT May 2021. TECHNIQUE: Axial images through the cervical spine without contrast. Sagittal and coronal reconstructions on the technologist workstation were performed. This CT examination was performed using dose optimization techniques as appropriate, variously including the following: *Automated exposure control *Adjustment of mA and/or kV according to patient size (this includes techniques or standardized protocols for targeted exams where dose is matched to indication/reason for exam; i.e. extremities or head) *Use of iterative reconstruction technique DLP: 318 mGy-cm FINDINGS: There is curvature of the lower cervical and upper thoracic spine to the left. Bone alignment is otherwise normal. No fracture or dislocation. There is multilevel degenerative spondylosis and degenerative disc disease from C3-C4 to C7-T1. Prevertebral soft tissues are normal. There is mild right carotid calcification. There are adjacent soft tissue calcifications question representing small calcified lymph nodes. Visualized lung apices are clear. There is soft tissue opacification of the bilateral mastoid air cells and middle ears. Postsurgical changes from right mastoidectomy. This does not appear appreciably changed. CT/CT cervical spine wo IV con IMPRESSION: No fracture or dislocation. Degenerative changes. Fleischner guidelines were followed.
--- NOTE | 2022-10-20 10:46 | ED_ITS ---
HPI - General Adult General Chief complaint: Fall Stated complaint: Fall, head strike w/ lac Time Seen by Provider: 10/20/22 10:46 Source: patient and EMS Mode of arrival: EMS Limitations: no limitations History of Present Illness HPI narrative: The pt is a 81 yo assigned female at presenting 1 hr after a trip and fall. She reports that she was getting ready for a hair appointment when she stepped backwards, tripped over her slippers, and fell back and hit her head on her dresser. She denies any preceding symptoms of chest pain, SOB, headache, dizziness, lightheadedness, or abdominal pain. She denies any LOC and states that she was on the floor for approx 20 minutes before EMS arrival. She denies any current complaints including headache, neck or back pain, dizziness, extremity pain, or abd pain. She denies use of anticoagulants except for a daily baby Aspirin. She reports that she has not had any recent falls. She denies any drug or alcohol use. Onset (ago): hour(s) (1) Location: head Radiation: non-radiation Severity: mild Severity scale (1-10): 1 Quality: aching Pain Consistency: now resolved Relieving factors: none Exacerbating factors: none Associated symptoms: denies other symptoms Treatments prior to arrival: none Related Data Home Medications Medication Instructions Recorded Confirmed Vitamin D3 1,000 units PO DAILY 03/07/21 03/07/21 aspirin 81 mg PO DAILY 03/07/21 03/07/21 atorvastatin 10 mg tablet 1 tab PO DAILY 03/07/21 03/07/21 citalopram 20 mg tablet 1 tab PO DAILY 03/07/21 03/07/21 clonazepam 0.5 mg tablet 1 tab PO BID PRN anxiety 03/07/21 03/07/21 diclofenac sodium See Rx Instructions .Route .COMPLEX 03/07/21 03/07/21 levothyroxine 88 mcg tablet 1 tab PO DAILY 03/07/21 03/07/21 magnesium 250 mg PO DAILY 03/07/21 03/07/21 mirtazapine 15 mg tablet 1 tab PO DAILY 03/07/21 03/07/21 multivitamin 1 tab PO DAILY 03/07/21 03/07/21 nystatin 1 appl topical BID 03/07/21 03/07/21 primidone 50 mg tablet 2 tab PO BID 03/07/21 03/07/21 solifenacin 5 mg PO BEDTIME 03/07/21 03/07/21 trazodone 50 mg tablet 1 tab PO BEDTIME 03/07/21 03/07/21 Allergies Allergy/AdvReac Type Severity Reaction Status Date / Time No Known Allergies Allergy Mild NOT Verified 06/08/21 18:03 [No Known Allergies*] APPLICABLE Review of Systems Constitutional: Constitutional: Reports no additional constitutional complaints, Denies chills, Denies fever(s) and Denies night sweats Eyes: Eyes: Reports no additional eye complaints, Denies blurry vision, Denies change in vision, Denies diplopia, Denies eye discharge, Denies loss of vision and Denies eye pain ENT: Denies dizziness Cardiovascular: Cardiovascular: Reports no additional cardiovascular complaints, Denies chest pain, Denies lightheadedness, Denies Loss of Consciousness and Denies dyspnea Respiratory: Respiratory: Reports no additional respiratory complaints and Denies dyspnea Gastrointestinal: Gastrointestinal: Reports no additional gastrointestinal complaints and Denies abdominal pain Genitourinary: Genitourinary: Denies hematuria, Denies urinary frequency, Denies dysuria, Denies urinary incontinence, Denies urinary hesitancy and Denies urinary urgency Musculoskeletal: Musculoskeletal: Reports no additional musculoskeletal complaints, Denies numbness and Denies tingling Integumentary/Breasts: Comments: head laceration Neurologic: Reports Abnormal speech present, Denies dizziness, Denies loss of vision, Denies numbness and Denies tingling Psychiatric: Psychiatric: Reports no additional psychiatric complaints Endocrine: Endocrine: Reports no additional endocrine complaints Hematologic/Lymphatic: Hematologic/Lymphatic: Reports no additional hematologic/lymphatic complaints Allergic/Immunologic: Allergic/Immunologic: Reports no additional allergic /immunologic complaints [facility] Past Medical History Attestation statement: The following information was validated with the patient. Source: old records reviewed Medical History Anxiety Depressed High cholesterol Hypothyroid Overactive bladder Seizure Social History Social History Alcohol intake: never Advance Directives: Yes Advance Directives on File: Yes Advance Directives Date on File: 03/06/21 Physical Exam ED Vital Signs: Vital Signs - 24 hr 10/20/22 10:51 Temperature 98.1 F Pulse Rate 73 Respiratory Rate 18 Blood Pressure 171/66 H Pulse Oximetry 98 Oxygen Delivery Method Room Air BMI result Body Mass Index 34.5 Const General: healthy appearing and no acute distress Nutritional Appearance: well nourished Orientation/consciousness: patient oriented x3 Limitations: no limitations HENMT Head: Yes hematoma Head images: 1. small abrasion, no active bleeding Ears: hearing grossly normal bilaterally and external ears normal General nose exam: Normal external nose present Face and sinus: No crepitus, No ecchymosis, No erythema, No edema and No laceration Mouth: Normal oral and palatal mucosa present, no drooling and no muffled voice Eyes General: appearance normal, both eyes and all related structures Periorbital: periorbital findings normal Eyelids: Yes eyelids normal Conjunctivae: conjunctivae normal Sclerae: sclerae normal Pupils: Equal, round and reactive pupils present EOM: EOMs intact bilaterally Neck Neck: Yes normal visual inspection Chest Chest palpation & inspection: normal inspection of the chest, normal palpation of entire chest wall and no crepitus Resp Effort & Inspection: normal respiratory effort and able to speak in complete sentences Auscultation: clear to auscultation bilaterally Cardio Rate: regular rate Rhythm: regular rhythm Heart sounds: S1 normal heart sound present and S2 normal heart sound present Peripheral pulses: Peripheral pulses 2+ throughout GI Inspection: Yes normal to inspection Palpation (GI): Soft to palpation, not firm, nontender, no guarding, not rigid and No hepatosplenomegaly present Rectal Exam - Female: deferred Back/Spine/Pelvis Back: No back tenderness Cervical Spine: collar present Neuro General: patient oriented x3 Cranial nerves: Yes Equal, round and reactive pupils present and Yes Nystagmus not present Cognition (Neuro): normal cognition Speech: Abnormal speech present Motor exam (neuro): 5/5 motor strength present throughout Sensory Exam: Normal double simultaneous stimulation for sensation Coordination: [id number] test normal Extrem General: Yes normal to inspection Psych Appearance: grossly normal Mental Status: mental status grossly normal Affect: normal affect Attitude: cooperative Thought process: Normal thought process present Thought content: Normal thought content present Insight: Good insight present (Psych) Medications Administered Discontinued Medications Generic Name Dose Route Start Last Admin Trade Name Freq PRN Reason Stop Dose Admin Diphtheria/Tetanus/Acell Pertussis 0.5 ml 10/20/22 11:12 10/20/22 11:31 Diphth,Pertus(Acell),Tet Adult 0.5 Ml Syringe IM 10/20/22 11:13 0.5 ml .ONCE ONE Administration Medical Decision Making MDM Narrative Medical decision making narrative: Patient is a 81 year old assigned female at with no reported medical history presenting to the emergency department today with a head abrasion. Patient's physical exam showed a small abrasion to the back of the head but no active bleeding. Patient's head and c-spine CT showed no acute process. I explained my physical exam findings as well as all test results to the patient and the patient's daughter. I answered all questions asked by the patient and the patient's daughter. I stressed the importance of the patient taking her medication as prescribed. I stressed the importance of the patient following up with her primary care provider. I stressed the importance of the patient returning to the emergency department immediately if her symptoms were to worsen or if she were to develop any dizziness, shortness of breath, difficulty breathing, chest pain, blurry vision, loss of vision, nausea, vomiting, abdominal pain, fever, chills, back pain, or any other complaints. Patient and the patient's daughter verbalized agreement and understanding with this treatment plan and discharge. Differential Diagnosis Differential Diagnosis: abrasion, fall Medical Records Medical records reviewed: Yes I reviewed the patient's medical records. Imaging Data CT scan - head: Attestation: I personally reviewed and interpreted this imaging study as follows: My impression: No acute process. Radiologist's impression: EXAMINATION: CT HEAD WITHOUT CONTRAST CLINICAL INFORMATION: Patient fell on on her head. COMPARISON: 06/08/2021 TECHNIQUE: Contiguous axial imaging was performed from the skull base to vertex without intravenous administration of contrast. This CT examination was performed using dose optimization techniques as appropriate, variously including the following: *Automated exposure control *Adjustment of mA and/or kV according to patient size (this includes techniques or standardized protocols for targeted exams where dose is matched to indication/reason for exam; i.e. extremities or head) *Use of iterative reconstruction technique DLP: 767 mGy-cm FINDINGS: No intra or extra-axial fluid collection or hemorrhage, mass, or mass effect. Sulci and ventricles are age-appropriate. Calvarium intact. ? CT/CT head/brain wo IV con IMPRESSION: No acute intracranial pathology. Dictated By: Sebastián Woodard MD Signed By: Electronically signed by Sebastián Woodard MD 10/20/[address] scan C-Spine: Attestation: I personally reviewed and interpreted this imaging study as follows: My impression: No acute process. Radiologist's impression: EXAMINATION: CT CERVICAL SPINE WITHOUT CONTRAST CLINICAL INFORMATION: Fall. Head trauma.? COMPARISON: Previous CT May 2021. TECHNIQUE: Axial images through the cervical spine without contrast. Sagittal and coronal reconstructions on the technologist workstation were performed. ? This CT examination was performed using dose optimization techniques as appropriate, variously including the following: *Automated exposure control *Adjustment of mA and/or kV according to patient size (this includes techniques or standardized protocols for targeted exams where dose is matched to indication/reason for exam; i.e. extremities or head) *Use of iterative reconstruction technique DLP: 318 mGy-cm FINDINGS: There is curvature of the lower cervical and upper thoracic spine to the left. Bone alignment is otherwise normal. No fracture or dislocation. There is multilevel degenerative spondylosis and degenerative disc disease from C3-C4 to C7-T1. Prevertebral soft tissues are normal. There is mild right carotid calcification. There are adjacent soft tissue calcifications question representing small calcified lymph nodes. Visualized lung apices are clear. There is soft tissue opacification of the bilateral mastoid air cells and middle ears. Postsurgical changes from right mastoidectomy. This does not appear appreciably changed. CT/CT cervical spine wo IV con IMPRESSION: No fracture or dislocation. Degenerative changes.? ? Fleischner guidelines were followed. Dictated By: Kaylin Jc MD Signed By: Electronically signed by Kaylin Jc MD 10/20/22 1351 Discharge Plan Discharge Clinical Impression: Abrasion Patient Disposition: Home, Self-Care Instructions: Abrasion (ED) Additional Instructions: Follow up with your primary care provider. Return to the emergency department im mediately if your symptoms worsen or if you develop any dizziness, shortness of breath, difficulty breathing, chest pain, blurry vision, loss of vision, nausea, vomiting, abdominal pain, fever, chills, back pain, or any other complaints. Prescriptions: No Action trazodone 50 mg tablet 1 tab PO BEDTIME atorvastatin 10 mg tablet 1 tab PO DAILY clonazepam 0.5 mg tablet 1 tab PO BID PRN (Reason: anxiety) levothyroxine 88 mcg tablet 1 tab PO DAILY citalopram 20 mg tablet 1 tab PO DAILY mirtazapine 15 mg tablet 1 tab PO DAILY aspirin 81 mg PO DAILY Vitamin D3 1,000 units PO DAILY Rx Instructions: 1,000 iu, 25mcg magnesium 250 mg PO DAILY multivitamin 1 tab PO DAILY nystatin 1 appl topical BID Rx Instructions: apply to breast, 1000,000 units solifenacin 5 mg PO BEDTIME diclofenac sodium See Rx Instructions .ROUTE .COMPLEX Rx Instructions: 1% gel 2 grams 3 x daily primidone 50 mg tablet 2 tab PO BID Referrals: Krystal Medrano NP [Primary Care Provider] - Print Language: Korean
[2022-10-20 10:51] VITALS: BP 132/82; BP 171/66; PULSE 73; PULSE 78; RESP 18; TEMP 36.7; O2SAT 95; O2SAT 98; BMI 34.5
[2022-10-20] MEDS: Diphth,Pertus(ACell),Tet Adult 0.5 ML SYRINGE IM (11:31)
== END 2022-10-20 15:23 | disposition home or self-care (01) ==
PROVIDERS: Emergency Provider Emergency Medicine; PCP Nurse Practitioner Family
DX: S00.81XA Abrasion of other part of head, initial encounter (principal); M54.2 Cervicalgia; R51.9 Headache, unspecified; W01.0XXA Fall on same level from slipping, tripping and stumbling without subsequent striking against object, initial encounter; Y93.9 Activity, unspecified; Y92.9 Unspecified place or not applicable; Y99.9 Unspecified external cause status; Z79.899 Other long term (current) drug therapy
CPT/HCPCS: 70450; 72125; 90471; 90715; 99282; 99284

== ENCOUNTER 2022-11-07 01:18 | Emergency (ER) | payer MEDICARE, SELFPAY ==
--- NOTE | ~2022-11-07 | XR_ITS ---
EXAMINATION: XR forearm RT 2V, XR shoulder RT min 2V, XR knee RT 2V, XR foot RT 2V CLINICAL INFORMATION: Reason for Exam mechanical fall COMPARISON: None. TECHNIQUE: 3 view series right shoulder, 2 view series right forearm, 3 view series right foot, 4 view series right knee FINDINGS: Right shoulder: Mild osteophytosis of the acromioclavicular joint is present. Diffuse osteopenia. No dystrophic soft tissue calcifications. No fractures or acute appearing subluxations noted. The visualized right ribs and lung are normal in appearance. Right forearm: Soft tissue reticulation is present along the lateral aspect of the proximal forearm and elbow suspicious for acute inflammatory changes. Diffuse osteopenia noted. Multiple chronic appearing well-corticated ossific bodies adjacent to the distal ulna. No acute appearing fractures noted. No elbow joint effusion visualized. Right foot: Diffuse osteopenia. No Lisfranc malalignment. Multiple hammertoe deformities. Normal appearance of the calcaneus aside from enthesopathic changes. Right knee: Diffuse osteopenia. Mild tricompartmental osteophytosis. No suprapatellar bursal effusion. Prepatellar soft tissue inflammatory changes. XR/XR forearm RT 2V IMPRESSION: Right shoulder: *No acute abnormalities. Right forearm: *Lateral soft tissue inflammatory changes. *No acute fractures. Right foot: *No acute abnormalities. Right knee: *Prepatellar soft tissue inflammatory changes. *No acute fractures.
--- NOTE | ~2022-11-07 | XR_ITS ---
EXAMINATION: XR forearm RT 2V, XR shoulder RT min 2V, XR knee RT 2V, XR foot RT 2V CLINICAL INFORMATION: Reason for Exam mechanical fall COMPARISON: None. TECHNIQUE: 3 view series right shoulder, 2 view series right forearm, 3 view series right foot, 4 view series right knee FINDINGS: Right shoulder: Mild osteophytosis of the acromioclavicular joint is present. Diffuse osteopenia. No dystrophic soft tissue calcifications. No fractures or acute appearing subluxations noted. The visualized right ribs and lung are normal in appearance. Right forearm: Soft tissue reticulation is present along the lateral aspect of the proximal forearm and elbow suspicious for acute inflammatory changes. Diffuse osteopenia noted. Multiple chronic appearing well-corticated ossific bodies adjacent to the distal ulna. No acute appearing fractures noted. No elbow joint effusion visualized. Right foot: Diffuse osteopenia. No Lisfranc malalignment. Multiple hammertoe deformities. Normal appearance of the calcaneus aside from enthesopathic changes. Right knee: Diffuse osteopenia. Mild tricompartmental osteophytosis. No suprapatellar bursal effusion. Prepatellar soft tissue inflammatory changes. XR/XR knee RT 2V IMPRESSION: Right shoulder: *No acute abnormalities. Right forearm: *Lateral soft tissue inflammatory changes. *No acute fractures. Right foot: *No acute abnormalities. Right knee: *Prepatellar soft tissue inflammatory changes. *No acute fractures.
--- NOTE | ~2022-11-07 | XR_ITS ---
EXAMINATION: XR forearm RT 2V, XR shoulder RT min 2V, XR knee RT 2V, XR foot RT 2V CLINICAL INFORMATION: Reason for Exam mechanical fall COMPARISON: None. TECHNIQUE: 3 view series right shoulder, 2 view series right forearm, 3 view series right foot, 4 view series right knee FINDINGS: Right shoulder: Mild osteophytosis of the acromioclavicular joint is present. Diffuse osteopenia. No dystrophic soft tissue calcifications. No fractures or acute appearing subluxations noted. The visualized right ribs and lung are normal in appearance. Right forearm: Soft tissue reticulation is present along the lateral aspect of the proximal forearm and elbow suspicious for acute inflammatory changes. Diffuse osteopenia noted. Multiple chronic appearing well-corticated ossific bodies adjacent to the distal ulna. No acute appearing fractures noted. No elbow joint effusion visualized. Right foot: Diffuse osteopenia. No Lisfranc malalignment. Multiple hammertoe deformities. Normal appearance of the calcaneus aside from enthesopathic changes. Right knee: Diffuse osteopenia. Mild tricompartmental osteophytosis. No suprapatellar bursal effusion. Prepatellar soft tissue inflammatory changes. XR/XR shoulder RT min 2V IMPRESSION: Right shoulder: *No acute abnormalities. Right forearm: *Lateral soft tissue inflammatory changes. *No acute fractures. Right foot: *No acute abnormalities. Right knee: *Prepatellar soft tissue inflammatory changes. *No acute fractures.
--- NOTE | ~2022-11-07 | XR_ITS ---
EXAMINATION: XR forearm RT 2V, XR shoulder RT min 2V, XR knee RT 2V, XR foot RT 2V CLINICAL INFORMATION: Reason for Exam mechanical fall COMPARISON: None. TECHNIQUE: 3 view series right shoulder, 2 view series right forearm, 3 view series right foot, 4 view series right knee FINDINGS: Right shoulder: Mild osteophytosis of the acromioclavicular joint is present. Diffuse osteopenia. No dystrophic soft tissue calcifications. No fractures or acute appearing subluxations noted. The visualized right ribs and lung are normal in appearance. Right forearm: Soft tissue reticulation is present along the lateral aspect of the proximal forearm and elbow suspicious for acute inflammatory changes. Diffuse osteopenia noted. Multiple chronic appearing well-corticated ossific bodies adjacent to the distal ulna. No acute appearing fractures noted. No elbow joint effusion visualized. Right foot: Diffuse osteopenia. No Lisfranc malalignment. Multiple hammertoe deformities. Normal appearance of the calcaneus aside from enthesopathic changes. Right knee: Diffuse osteopenia. Mild tricompartmental osteophytosis. No suprapatellar bursal effusion. Prepatellar soft tissue inflammatory changes. XR/XR foot RT 2V IMPRESSION: Right shoulder: *No acute abnormalities. Right forearm: *Lateral soft tissue inflammatory changes. *No acute fractures. Right foot: *No acute abnormalities. Right knee: *Prepatellar soft tissue inflammatory changes. *No acute fractures.
[2022-11-07 01:23] VITALS: BP 170/84; BP 182/68; PULSE 75; PULSE 80; RESP 16; TEMP 36.8; O2SAT 95; O2SAT 97; BMI 34.5
--- NOTE | 2022-11-07 01:32 | MHC.EDTECH ---
PATIENT ARRIVED VIA [facility] FOR A MECHANICAL FALL ,PATIENT VITALS SIGN TAKEN ,RN ERIKA IS AWARE OF PATIENT HIGH BLOOD PRESSURE .PATIENT GOT GLOBAL RECRUITER INTO HOSPITAL ATTIRE ,PATIENT WAS INCONTINENT OF URINE ,CARE GIVEN ,RED SOCK PUT ON PT FEET AND RED STAR FALL SIGN ON WALL ,PATIENT RESTING AWAITHING TO BE SEEN BY PROVIDER .
--- NOTE | 2022-11-07 02:21 | PC.NURSE ---
Patient unable to ambulate safely on her own. At home uses a walker. Patient needed to use the bathroom and attempted to get out of bed. She was advised multiple times to remain in her bed as she attempted to get out of it while staff was getting necessary supplies to accommodate her being able to urinate. Patient became increasingly agitated when told staff would be placing a purewick. Patient demanded a commode. However, it is not a safe choice for her at this time. Pending xray for R arm and R leg as patient fell on her arm and injured her R knee and foot as well. She is not stable enough to use a bedside commode and it is not in the patient's best interest to use her injured arm and add unnecessary stress to it while using the commode at this time as she continues to be a fall risk.
--- NOTE | 2022-11-07 02:22 | ED_ITS ---
HPI - Fall General Chief Complaint: Fall Stated Complaint: fall Time Seen by Provider: 11/07/22 02:16 Source: patient and EMS Mode of arrival: EMS Limitations: no limitations History of Present Illness HPI Narrative: Patient comes to the emergency room from home. Patient states that she lives by herself. Patient came by ambulance. patient reports that she was walking with a walker, it got stuck and she landed on her right side of the body. Patient states that she did not hit her head or lose consciousness, patient does not take any blood thinners. Patient complaining of soreness in her upper arm and right knee. Patient states that she has big bruises in both upper and lower extremity on the right side. Related Data Home Medications Medication Instructions Recorded Confirmed Vitamin D3 1,000 units PO DAILY 03/07/21 03/07/21 aspirin 81 mg PO DAILY 03/07/21 03/07/21 atorvastatin 10 mg tablet 1 tab PO DAILY 03/07/21 03/07/21 citalopram 20 mg tablet 1 tab PO DAILY 03/07/21 03/07/21 clonazepam 0.5 mg tablet 1 tab PO BID PRN anxiety 03/07/21 03/07/21 diclofenac sodium See Rx Instructions .Route .COMPLEX 03/07/21 03/07/21 levothyroxine 88 mcg tablet 1 tab PO DAILY 03/07/21 03/07/21 magnesium 250 mg PO DAILY 03/07/21 03/07/21 mirtazapine 15 mg tablet 1 tab PO DAILY 03/07/21 03/07/21 multivitamin 1 tab PO DAILY 03/07/21 03/07/21 nystatin 1 appl topical BID 03/07/21 03/07/21 primidone 50 mg tablet 2 tab PO BID 03/07/21 03/07/21 solifenacin 5 mg PO BEDTIME 03/07/21 03/07/21 trazodone 50 mg tablet 1 tab PO BEDTIME 03/07/21 03/07/21 Allergies Allergy/AdvReac Type Severity Reaction Status Date / Time No Known Allergies Allergy Mild NOT Verified 11/07/22 01:31 [No Known Allergies*] APPLICABLE Review of Systems Review of Systems: Constitutional : No Weight loss, No Fever, No Chills, No Night Sweats, No Fatigue, No Malaise ENT/Mouth : No Hearing loss, No Ear Pain, No Nasal Congestion, No Sinus Pain, No Hoarseness, No sore throat, No Rhinorrhea, No Swallowing Difficulty Eyes: No Eye Pain, No Swelling, No Redness, No Foreign Body, No Discharge, No Vision Changes Cardiovascular : No Chest Pain, No SOB, No Dyspnea on Exertion, No Orthopnea, No Edema, No Palpitations Respiratory : No Cough, No Sputum, No Wheezing, No Smoke Exposure, No Dyspnea Gastrointestinal : No Nausea, No Vomiting, No Diarrhea, No Constipation, No abdominal Pain, No Hematochezia, No Melena Genitourinary : no irregular bleeding, No Dysuria, No Urinary Frequency, No Hematuria, No Urinary Incontinence, No Urgency, No Flank Pain, No Urinary Flow Changes, No Hesitancy Musculoskeletal : No joint pain, No Myalgias, No Joint Swelling Skin : complaining of bruises in upper and lower extremity Neuro : No Weakness, No Numbness, No Paresthesias, No Loss of Consciousness, No Dizziness, No Headache Psych : No Anxiety/Panic, No Depression, No SI/HI/AH/VH, No Social Issues, Heme/Lymph: No Bruising, No Bleeding,No Lymphadenopathy Endocrine : No Polyuria, No Polydipsia, No Temperature Intolerance PMFSH Past Medical History Medical History Anxiety Depressed High cholesterol Hypothyroid Overactive bladder Seizure Social History Social History Alcohol intake: never Advance Directives: Yes Advance Directives on File: Yes Advance Directives Date on File: 03/06/21 Physical Exam Vital Signs: Vital Signs: Last Vital Signs Temp 98.3 F 11/07/22 05:55 Pulse 98 11/07/22 05:55 Resp 22 H 11/07/22 05:55 BP 178/72 H 11/07/22 05:55 Pulse Ox 96 11/07/22 05:55 O2 Del Method 11/07/22 05:55 BMI result Body Mass Index 34.5 Const: Other: Appearance: Alert. Oriented X3. No acute distress. Eyes: Pupils equal, round and reactive to light. ENT: Pharynx normal. Neck: Normal inspection. Neck supple. No lymph nodes noted. No crepitus CVS: Normal heart rate and rhythm. Pulses normal. Normal S1 and S2 Respiratory: No respiratory distress. Breath sounds normal. No Wheezing. No rales Abdomen: Soft and nontender. No rigidity. No distention. Skin: Skin warm and dry. ecchymosis and right arm, right knee Extremities: No lower extremity edema. patient is able to flex and extend shoulder, elbow, wrist, hips, knees [place] Neuro: Oriented X 3. No motor deficit. No sensory deficit. Moving all extremities. No slurred speech. CN 2 through 12 grossly intact Psych: calm, cooperative, normal affect Course Course Course Narrative: x-rays are pending. Patient did not hit her head or lose consciousness. Patient is not on blood thinners. I discussed with the patient's that we will obtain x-rays to rule out fracture. Then we will evaluate her gait. I offered to the patient physical therapy and case management. Patient states that she lives by herself and when patient's daughter is available, sometimes she does visit her and checks on her. Patient states that she is not interested in case management consult, she does not want any visiting nurses For physical therapy. X-rays do not show any acute fractures Patient was able to get up and walk with her walker. However, patient changed her mind and she is willing to have a case management consult for visiting nurses Patient has ecchymosis in her right upper arm has not increased in size Physician of sedation started at 06:30 X-rays of the right shoulder, right forearm, right foot, right knee, show no acute findings INDINGS: Right shoulder: Mild osteophytosis of the acromioclavicular joint is present. Diffuse osteopenia. No dystrophic soft tissue calcifications. No fractures or acute appearing subluxations noted. The visualized right ribs and lung are normal in appearance. Right forearm: Soft tissue reticulation is present along the lateral aspect of the proximal forearm and elbow suspicious for acute inflammatory changes. Diffuse osteopenia noted. Multiple chronic appearing well-corticated ossific bodies adjacent to the distal ulna. No acute appearing fractures noted. No elbow joint effusion visualized. Right foot: Diffuse osteopenia. No Lisfranc malalignment. Multiple hammertoe deformities. Normal appearance of the calcaneus aside from enthesopathic changes. Right knee: Diffuse osteopenia. Mild tricompartmental osteophytosis. No suprapatellar bursal effusion. Prepatellar soft tissue inflammatory changes. XR/XR shoulder RT min 2V IMPRESSION: Right shoulder: *No acute abnormalities. ? Right forearm: *Lateral soft tissue inflammatory changes. *No acute fractures. ? Right foot: *No acute abnormalities. ? Right knee: *Prepatellar soft tissue inflammatory changes. *No acute fractures.? Medications Administered Discontinued Medications Generic Name Dose Route Start Last Admin Trade Name Freq PRN Reason Stop Dose Admin Acetaminophen 975 mg 11/07/22 02:20 11/07/22 02:37 Acetaminophen 325 Mg Tablet PO 11/07/22 02:21 975 mg ONCE ONE Administration Discharge Plan Discharge Clinical Impression: Multiple contusions, Ecchymosis Patient Disposition: Still a Patient Prescriptions: No Action trazodone 50 mg tablet 1 tab PO BEDTIME atorvastatin 10 mg tablet 1 tab PO DAILY clonazepam 0.5 mg tablet 1 tab PO BID PRN (Reason: anxiety) levothyroxine 88 mcg tablet 1 tab PO DAILY citalopram 20 mg tablet 1 tab PO DAILY mirtazapine 15 mg tablet 1 tab PO DAILY aspirin 81 mg PO DAILY Vitamin D3 1,000 units PO DAILY Rx Instructions: 1,000 iu, 25mcg magnesium 250 mg PO DAILY multivitamin 1 tab PO DAILY nystatin 1 appl topical BID Rx Instructions: apply to breast, 1000,000 units solifenacin 5 mg PO BEDTIME diclofenac sodium See Rx Instructions .ROUTE .COMPLEX Rx Instructions: 1% gel 2 grams 3 x daily primidone 50 mg tablet 2 tab PO BID
[2022-11-07 02:31] VITALS: BP 167/85; PULSE 66; RESP 16; TEMP 36.3; O2SAT 96
[2022-11-07] MEDS: Acetaminophen 325 MG TABLET 975 MG PO (02:37)
--- NOTE | 2022-11-07 02:44 | PC.NURSE ---
Patient using purewick successfully. Patient resting quietly. No apparent distress. Currently waiting on imaging services to do xrays at this time.
[2022-11-07 04:18] VITALS: BP 175/72; PULSE 66; RESP 20; TEMP 36.9; O2SAT 98
--- NOTE | 2022-11-07 04:45 | PC.NURSE ---
Patient requested warm blanket. Provided. Resting quietly. No apparent distress.
--- NOTE | 2022-11-07 05:37 | PC.NURSE ---
Patient was asked to ambulate with walker. Patient ambulates safely and independently with walker. Dr. Guevara notified.
[2022-11-07 05:55] VITALS: BP 178/72; PULSE 98; RESP 22; TEMP 36.8; O2SAT 96
--- NOTE | 2022-11-07 08:48 | PC.NURSE ---
Pt ambulates with steady gait using walker. Awaiting ride from daughter.
== END 2022-11-07 09:14 | disposition home or self-care (01) ==
PROVIDERS: Emergency Provider Emergency Medicine; PCP Nurse Practitioner Family
DX: S80.01XA Contusion of right knee, initial encounter (principal); S40.021A Contusion of right upper arm, initial encounter; M79.605 Pain in left leg; M79.604 Pain in right leg; M25.512 Pain in left shoulder; M25.511 Pain in right shoulder; W01.10XA Fall on same level from slipping, tripping and stumbling with subsequent striking against unspecified object, initial encounter; Y93.9 Activity, unspecified; Y92.009 Unspecified place in unspecified non-institutional (private) residence as the place of occurrence of the external cause; Y99.9 Unspecified external cause status; Z79.899 Other long term (current) drug therapy
CPT/HCPCS: 73030; 73090; 73560; 73620; 99283; 99284

== ENCOUNTER 2023-07-25 14:03 | Outpatient (REF) | payer OTHER, MEDICAID, SELFPAY ==
--- NOTE | ~2023-07-25 | MM_ITS ---
EXAMINATION: MM SCREENING DIGITAL BREAST TOMOSYNTHESIS, BILATERAL CLINICAL INFORMATION: Screening. Asymptomatic. COMPARISON: Mammography: 07/22/2022, 07/20/2021, 07/18/2020, and exams dating to 11/02/2012. TECHNIQUE: Digital breast tomosynthesis is performed in both the craniocaudal and mediolateral oblique views along with computer-aided detection (CAD). Synthesized 2D images are generated from the tomosynthesis. FINDINGS: The breasts are almost entirely fatty (ACR BI-RADS breast composition Category a). There are no suspicious masses, suspicious grouped calcifications, or areas of architectural distortion. The parenchymal pattern is stable from prior exams. Intramammary lymph node again noted posterior upper outer left breast, and a stable nodule anterior central 11:00 right breast, benign. No skin changes. MM/MM tomosynthesis screening BI IMPRESSION: No mammographic evidence of malignancy. Stable benign findings. ASSESSMENT: BI-RADS BI-RADS 2 - Benign Findings RECOMMENDATION: Routine annual mammography screening. 1 year F/U This examination should not preclude the clinical evaluation of a suspicious palpable abnormality. This patient's information was entered into a reminder system with a target due date for their next mammogram.
== END 2023-07-25 14:04 | disposition home or self-care (01) ==
LOC: HO.MAMMO 14:03
PROVIDERS: Visit Provider Nurse Practitioner Family
DX: Z12.31 Encounter for screening mammogram for malignant neoplasm of breast (principal)
CPT/HCPCS: 77063; 77067

== ENCOUNTER → 2023-07-25 14:15 | Outpatient (BNV) | payer OTHER, MEDICAID, SELFPAY | PROVIDERS: Visit Provider Radiology Diagnostic Radiology | DX: Z12.31 Encounter for screening mammogram for malignant neoplasm of breast (principal) | CPT/HCPCS: 77063; 77067 ==

== ENCOUNTER 2023-08-25 13:02 | Outpatient (REF) | payer OTHER, MEDICAID, SELFPAY | END 2023-08-25 13:03 | disposition home or self-care (01) | LOC: HO.MAMMO 13:02 | PROVIDERS: PCP Nurse Practitioner Family; Visit Provider Nurse Practitioner Family | DX: Z13.820 Encounter for screening for osteoporosis (principal); M85.80 Other specified disorders of bone density and structure, unspecified site; Z78.0 Asymptomatic menopausal state | CPT/HCPCS: 77080 ==

== ENCOUNTER 2024-07-27 14:27 | Outpatient (REF) | payer OTHER, MEDICAID, SELFPAY | END 2024-07-27 14:28 | disposition home or self-care (01) | LOC: HO.MAMMO 14:27 | PROVIDERS: PCP Internal Medicine; Visit Provider Internal Medicine | DX: Z13.89 Encounter for screening for other disorder (principal) ==

== ENCOUNTER 2024-08-24 12:21 | Outpatient (REF) | payer OTHER, MEDICAID, SELFPAY ==
--- NOTE | ~2024-08-24 | MM_ITS ---
EXAMINATION: MM SCREENING DIGITAL BREAST TOMOSYNTHESIS, BILATERAL CLINICAL INFORMATION: Screening. Asymptomatic. COMPARISON: Mammography: Comparison is made with available priors TECHNIQUE: Digital breast mammography with tomosynthesis is performed in both the craniocaudal and mediolateral oblique views along with computer-aided detection (CAD). FINDINGS: There are scattered areas of fibroglandular density (ACR BI-RADS breast composition Category b). Bilateral scattered focal asymmetry stable dating back to 2013. There are no significant masses, abnormal calcifications, or other abnormalities. MM/MM tomosynthesis screening BI IMPRESSION: No mammographic evidence of malignancy. ASSESSMENT: BI-RADS BI-RADS 2 - Benign Findings RECOMMENDATION: Routine annual mammography screening. 1 year F/U This examination should not preclude the clinical evaluation of a suspicious palpable abnormality. This patient's information was entered into a reminder system with a target due date for their next mammogram. Electronically signed by: Judi Montanez DO 09/05/2024 03:16 PM EDT
== END 2024-08-24 12:22 | disposition home or self-care (01) ==
LOC: HO.MAMMO 12:21
PROVIDERS: PCP Internal Medicine; Visit Provider Internal Medicine
DX: Z12.31 Encounter for screening mammogram for malignant neoplasm of breast (principal)
CPT/HCPCS: 77063; 77067

== ENCOUNTER → 2024-08-24 12:30 | Outpatient (BNV) | payer OTHER, MEDICAID, SELFPAY | PROVIDERS: PCP Internal Medicine; Visit Provider Internal Medicine | DX: Z12.31 Encounter for screening mammogram for malignant neoplasm of breast (principal) | CPT/HCPCS: 77063; 77067 ==

== ENCOUNTER 2024-09-28 08:11 | Outpatient (REF) | payer OTHER, MEDICAID, SELFPAY ==
[2024-09-28 10:24] LABS: MANUAL DIFF FLAG NO
[2024-09-28 10:39] LABS: Basophils Percent Auto 0.6 % (0-2); Eosinophils Absolute Auto 0.1 X10*3/uL (0.0-0.4); Eosinophils Percent Auto 2.3 % (0-4); Hematocrit 34.4 % (37.0-47.0); Hemoglobin 11.4 g/dl (12.0-16.0); Imm Gran Abs Auto 0.01 X10*3/uL (0.00-0.03); Imm Gran Pct Auto 0.2 % (0.0-0.4); Lymphocytes Absolute Auto 1.5 X10*3/uL (1.2-4.9); Lymphocytes Percent Auto 29.2 % (20-40); Mean Corpuscular HGB Conc 33.1 g/dl (31.0-35.0); Mean Corpuscular Hemoglobin 31.1 pg (27.0-33.0); Mean Corpuscular Volume 93.7 fL (80.0-98.0); Monocytes Absolute Auto 0.5 X10*3/uL (0.1-1.2); Monocytes Percent Auto 10.1 % (2-11); Neutrophils Percent Auto 57.6 % (45-73); Platelet Count 203 X10*3/uL (160-400); Red Blood Count 3.67 X10*6/uL (4.20-5.50); Red Cell Distribution Width 14.5 % (11.0-16.0); White Blood Count 5.1 X10*3/uL (4.8-10.8)
[2024-09-28 11:05] LABS: Alanine Aminotransferase 23 U/L (0-31); Alkaline Phosphatase 84 U/L (39-117); Anion Gap 11 (12-20); Aspartate Amino Transferase 29 U/L (5-31); Bilirubin Total 0.5 mg/dL (0.0-1.0); Blood Urea Nitrogen 19 mg/dL (9-16); Calcium 9.4 mg/dL (8.4-10.2); Carbon Dioxide 28 mmol/L (22-29); Chloride 106 mmol/L (96-108); Cholesterol 144 mg/dL (<200); Estimated Glomerular Filt Rate > 60; Glucose Random 86 mg/dL (60-115); HDL Cholesterol 53 mg/dL (>40); LDL Cholesterol Calculated 76 mg/dL (<100); Potassium 4.6 mmol/L (3.3-5.1); Sodium 140 mmol/L (135-145); Triglycerides 75 mg/dL (<150)
[2024-09-28 11:29] LABS: TSH reflex Free T4 0.71 uIU/mL (0.32-4.0)
== END 2024-09-28 08:12 | disposition home or self-care (01) ==
LOC: HO.HMGCLDS 08:11
PROVIDERS: PCP Internal Medicine; Visit Provider Internal Medicine
DX: E78.5 Hyperlipidemia, unspecified (principal); E03.9 Hypothyroidism, unspecified; E55.9 Vitamin D deficiency, unspecified; F41.9 Anxiety disorder, unspecified; R25.1 Tremor, unspecified
CPT/HCPCS: 36415; 80053; 80061; 82306; 84443; 85025; 96127; 99202

== ENCOUNTER 2024-09-28 08:11 | Outpatient (AMB) | payer OTHER, MEDICAID, SELFPAY ==
--- NOTE | 2024-09-28 08:13 | A.OFFPC_ITS ---
Vital Signs 09/28/24 08:15 Height 5 ft 1 in Weight 172 lb BMI 32.5 BP 122/78 Blood Pressure Location Rt brachial Position Sitting Pulse 65 Pulse Source Pulse Oximeter Pulse Oximetry (%) 95 Oxygen Delivery Method Room Air Intake Visit Reasons: [employer] Est. Care Intake Note: Pt is here today for New patient visit. Allergies No Known Allergies [No Known Allergies*] Allergy (Mild, Verified 09/28/24 08:16) NOT APPLICABLE Medication List - Last Reconciled 09/28/24 by Radha Herrera MD acetaminophen 500 mg PO Q6H PRN [aspirin 81 mg PO DAILY] atorvastatin 10 mg PO DAILY citalopram 1 tab PO DAILY [diclofenac sodium 1% gel 2 grams 3 x daily] levothyroxine 1 tab PO DAILY [magnesium 250 mg PO DAILY] mirtazapine 1 tab PO DAILY [multivitamin 1 tab PO DAILY] [nystatin 1 appl topical BID] nystatin 1 appl topical BID primidone 2 tabs PO BID [solifenacin 5 mg PO BEDTIME] solifenacin 10 mg PO DAILY trazodone 1 tab PO BEDTIME [Vitamin D3 1,000 multiple units PO DAILY] Tobacco use date assessed: 09/28/24 Fall risk assessment: 1 Fall in past year Last assessed Fall Risk: 09/28/24 Dental Screening Dental Screen Date: 09/28/24 Did you have a dental visit in the last 12 months?: No Did you have a dental problem in the last 6 months where you did not have access to dental care?: No Was dental information given to patient?: Patient declined HPI [employer] Est. Care HPI Details Patient presents for new patient visit. Past medical history includes hypothyroidism hyperlipidemia history of chronic anxiety on multiple medications and had tremor managed by neurologist. Patient lives independently and is ambulating with a walker. [facility] Medical History (Updated 09/28/24 @ 11:15 by Radha Herrera MD) Hx of fracture of wrist Seizure Overactive bladder Hypothyroid Anxiety Depressed High cholesterol Surgical History History of shoulder surgery Family History Father Heart attack Mother Heart attack Social History Housing: Assisted Living Facility Alcohol intake: never Patient Tobacco Use Status: Never used Tobacco e-Cigarette/Vaping Use: Never Used Advance Directives Date on File: 03/06/21 service: No Current occupational status: retired Cognitive needs: No Hearing needs: No Vision needs: No Questionnaire PHQ-9 Over the last 2 weeks, how often have you been bothered by any of the following problems? 1. Little interest or pleasure in doing things: not at all 2. Feeling down, depressed, or hopeless: not at all 3. Trouble falling or staying asleep, or sleeping too much: several days 4. Feeling tired or having little energy: not at all 5. Poor appetite or overeating: not at all 6. Feeling bad about yourself - or that you are a failure or have let yourself or your family down: not at all 7. Trouble concentrating on things, such as reading the newspaper or watching television: not at all 8. Moving or speaking so slowly that other people could have noticed. Or the opposite - being so fidgety or restless that you have been moving around a lot more than usual: not at all 9. Thoughts that you would be better off or of hurting yourself in some way: not at all Total score: 1 Depression Screening Interpretation: Negative Depression Screening Done: Yes 61932 - PHQ-9 Billing: Yes Source: Developed by Drs. Lele Cabrera, Kathryn Tate, Colin Ponec and colleagues, with an educational anastacia from [employer]. Thrive Questionnaire Date Thrive assessed: 09/28/24 I am a: Patient What is your living situation today?: I have a steady place to live Within the past 12 months, did the food you bought not last and you didn't have the money to get more?: Never true Within the past 12 months, did you worry whether your food would run out before you got money to buy more?: Never true Do you have trouble paying for medicines?: No Do you have trouble getting transportation to medical appointments?: No Do you have trouble paying your heating and electricity bill?: No Do you have trouble taking care of your child, family member or friend?: No Do you have trouble with day-to-day activities such as bathing, preparing meals, shopping, managing finances, etc.?: No Are you currently unemployed and looking for a job?: No Are you interested in more education?: No Please select the resources that you would like help with: None Currently or been in a relationship where the following occur: I choose not to answer THRIVE Score: 0 AUDIT C Alcohol Use Questionnaire (AUDIT-C) 1. How often do you have a drink containing alcohol?: Never 3. How often do you have six or more drinks on one occasion?: Never Total Score: 0 RAYO-7 AMB Questionnaire RAYO-7 Date RAYO - 7 assessed: 09/28/24 Feeling nervous, anxious, or on edge: 1 = Several days Not being able to stop or control worryin = Several days Worrying too much about different things: 0 = Not at all Trouble relaxin = Not at all Being so restless that it is hard to sit still: 0 = Not at all Becoming easily annoyed or irritable: 0 = Not at all Feeling afraid as if something awful might happen: 0 = Not at all Total RAYO-7 score (0-4 normal; 5-9 mild; 10-14 moderate; 15-21 severe): 2 Source: Developed by Drs. Lele Cabrera, Kathryn Tate, Colin Ponce and colleagues, with an educational anastacia from [employer]. RAYO-7 Assessment Billing RAYO-7 Assessment Tool: RAYO-7 Assessment 90846 Review of Systems Const All systems reviewed & are unremarkable except as noted in HPI and below Eyes Reports no additional complaints ENT Reports no additional complaints Card Reports no additional complaints Resp Reports no additional complaints GI Reports no additional complaints Reports no additional complaints Musc Reports no additional complaints Physical exam (Primary Care) Vital Signs: Last Vital Signs Pulse 65 09/28/24 08:15 BP 122/78 09/28/24 08:15 Pulse Ox 95 09/28/24 08:15 Oxygen Delivery Method Room Air 09/28/24 08:15 BMI result Body Mass Index 32.5 Tobacco/Smoking Status: Tobacco use Status Tobacco use date assessed 09/28/24 09/28/24 08:23 Patient Tobacco Use Status Never used Tobacco 09/28/24 08:23 e-Cigarette/Vaping Use Never Used 09/28/24 08:23 PHQ-9: PHQ-9 Score PHQ-9: Total score 1 09/28/24 08:34 Depression Screening Interpretation: Negative Thrive Assessment: Date of Thrive Assessment Date Thrive assessed 09/28/24 09/28/24 08:24 Currently or been in a relationship where the following occur: I choose not to answer Const General: no acute distress HENMT Head: Yes normal to inspection General nose exam: Normal external nose present Face and sinus: Yes normal facial exam Eyes General: appearance normal, both eyes and all related structures Resp Effort & Inspection: normal respiratory effort Auscultation: clear to auscultation bilaterally Cardio Rhythm: regular rhythm Heart sounds: S1 normal heart sound present and S2 normal heart sound present GI Inspection: Yes normal to inspection Palpation (GI): Soft to palpation Percussion: Yes normal to percussion Auscultation: normal bowel sounds Coding Level of Care Code New Pt Level 4 (50061) Complex EM visit Add On G2211 Diagnoses Tremor R25.1 Hypothyroid E03.9 Hyperlipemia E78.5 Anxiety F41.9 Additional Codes RAYO-7 Assessment Billing - RAYO-7 Assessment Tool: RAYO-7 Assessment 41247 ([id number]) Assessment & Plan Assessment & Plan (1) Tremor: Comment: Established with Neurology Code(s): R25.1 - Tremor, unspecified Category: Medical Plan: Controlled on primidone (2) Hypothyroid: Code(s): E03.9 - Hypothyroidism, unspecified Category: Medical Plan: Continue levothyroxine check TSH (3) Hyperlipemia: Code(s): E78.5 - Hyperlipidemia, unspecified Category: Medical Plan: Continue statin check lipid profile (4) Anxiety: Comment: On multiple medications Code(s): F41.9 - Anxiety disorder, unspecified Category: Medical Plan: Patient was advised to discontinue clonazepam which was found to increase risk of falling and dementia in elderly patients. Patient has a history of multiple falls in the last few years complicated with wrist fracture. Continue citalopram and mirtazapine for now but tapering down citalopram will be discussed with patient during her next visit. The goal is to avoid polypharmacy. Follow-up in 2 months Orders: Orders Comprehensive Met. Panel Today E03.9 - Hypothyroidism, unspecified, E55.9 - Vitamin D deficiency, unspecified, E78.5 - Hyperlipidemia, unspecified, F41.9 - Anxiety disorder, unspecified Complete Blood Count Auto Diff Today E03.9 - Hypothyroidism, unspecified, E55.9 - Vitamin D deficiency, unspecified, E78.5 - Hyperlipidemia, unspecified, F41.9 - Anxiety disorder, unspecified Lipid Panel Today E03.9 - Hypothyroidism, unspecified, E55.9 - Vitamin D deficiency, unspecified, E78.5 - Hyperlipidemia, unspecified, F41.9 - Anxiety disorder, unspecified TSH reflex Free T4 Today E03.9 - Hypothyroidism, unspecified, E55.9 - Vitamin D deficiency, unspecified, E78.5 - Hyperlipidemia, unspecified, F41.9 - Anxiety disorder, unspecified Vitamin D 25-OH Total Today E03.9 - Hypothyroidism, unspecified, E55.9 - Vitamin D deficiency, unspecified, E78.5 - Hyperlipidemia, unspecified, F41.9 - Anxiety disorder, unspecified Medications: Changed From atorvastatin 1 tab PO DAILY To atorvastatin 10 mg PO DAILY 90 tabs 3RF
[2024-09-28 08:15] VITALS: BP 122/78; PULSE 65; O2SAT 95; BMI 32.5
== END 2024-09-28 09:02 | disposition home or self-care (01) ==
LOC: HO.HMCC 08:11
PROVIDERS: PCP Internal Medicine; Visit Provider Internal Medicine
DX: R25.1 Tremor, unspecified (principal); E03.9 Hypothyroidism, unspecified; E78.5 Hyperlipidemia, unspecified; F41.9 Anxiety disorder, unspecified

== ENCOUNTER 2024-11-29 13:47 | Outpatient (AMB) | payer OTHER, MEDICAID, SELFPAY ==
[2024-11-29 13:50] VITALS: BP 124/76; PULSE 68; O2SAT 95; BMI 31.4
--- NOTE | 2024-11-29 13:50 | MHC.PC.OV ---
Vital Signs 11/29/24 13:50 Height 5 ft 1 in Weight 166 lb BMI 31.4 BP 124/76 Blood Pressure Location Lt brachial Position Sitting Pulse 68 Pulse Source Pulse Oximeter Pulse Oximetry (%) 95 Oxygen Delivery Method Room Air Intake Visit Reasons: 2 months follow up Intake Note: Pt is here today for 2 months follow up visit. Allergies No Known Allergies [No Known Allergies*] Allergy (Mild, Verified 11/29/24 14:07) NOT APPLICABLE Medication List - Last Reconciled 11/29/24 by Radha Herrera MD acetaminophen 500 mg PO Q6H PRN [aspirin 81 mg PO DAILY] atorvastatin 10 mg PO DAILY citalopram 20 mg PO DAILY [diclofenac sodium 1% gel 2 grams 3 x daily] levothyroxine 88 mcg PO DAILY [magnesium 250 mg PO DAILY] mirtazapine 15 mg PO DAILY [multivitamin 1 tab PO DAILY] [nystatin 1 appl topical BID] nystatin 1 appl topical BID primidone 100 mg PO .qd [solifenacin 5 mg PO BEDTIME] solifenacin 10 mg PO DAILY trazodone 1 tab PO BEDTIME [Vitamin D3 1,000 multiple units PO DAILY] Tobacco use date assessed: 11/29/24 Fall risk assessment: No Falls in past year Last assessed Fall Risk: 11/29/24 Dental Screening Dental Screen Date: 11/29/24 Did you have a dental visit in the last 12 months?: No Did you have a dental problem in the last 6 months where you did not have access to dental care?: No Was dental information given to patient?: Patient declined HPI 2 months follow up HPI Details Patient presents for the follow-up of hypothyroidism hyperlipidemia chronic anxiety and depression and benign tremor. Patient reports being more emotional since she has stopped taking clonazepam and having occasional insomnia usually relieved with trazodone. Patient is established with neurologist for benign tremor. [facility] Medical History Hx of fracture of wrist Seizure Overactive bladder Hypothyroid Anxiety Depressed High cholesterol Surgical History History of shoulder surgery Family History Father Heart attack Mother Heart attack Social History Housing: Assisted Living Facility Alcohol intake: never Patient Tobacco Use Status: Never used Tobacco e-Cigarette/Vaping Use: Never Used Advance Directives Date on File: 03/06/21 service: No Current occupational status: retired Cognitive needs: No Hearing needs: No Vision needs: No Questionnaire PHQ-9 Over the last 2 weeks, how often have you been bothered by any of the following problems? 1. Little interest or pleasure in doing things: not at all 2. Feeling down, depressed, or hopeless: not at all 3. Trouble falling or staying asleep, or sleeping too much: not at all 4. Feeling tired or having little energy: not at all 5. Poor appetite or overeating: not at all 6. Feeling bad about yourself - or that you are a failure or have let yourself or your family down: not at all 7. Trouble concentrating on things, such as reading the newspaper or watching television: not at all 8. Moving or speaking so slowly that other people could have noticed. Or the opposite - being so fidgety or restless that you have been moving around a lot more than usual: not at all 9. Thoughts that you would be better off or of hurting yourself in some way: not at all Total score: 0 Depression Screening Interpretation: Negative Depression Screening Done: Yes 62297 - PHQ-9 Billing: Yes Source: Developed by Drs. Lele Cabrera, Kathrny Tate, Colin Ponce and colleagues, with an educational anastacia from [employer]. Thrive Questionnaire Date Thrive assessed: 11/29/24 I am a: Patient What is your living situation today?: I have a steady place to live Within the past 12 months, did the food you bought not last and you didn't have the money to get more?: I choose not to answer this question Within the past 12 months, did you worry whether your food would run out before you got money to buy more?: I choose not to answer this question Do you have trouble paying for medicines?: No Do you have trouble getting transportation to medical appointments?: No Do you have trouble paying your heating and electricity bill?: No Do you have trouble taking care of your child, family member or friend?: I choose not to answer this question Do you have trouble with day-to-day activities such as bathing, preparing meals, shopping, managing finances, etc.?: No Are you currently unemployed and looking for a job?: Yes Are you interested in more education?: No Please select the resources that you would like help with: None Currently or been in a relationship where the following occur: I choose not to answer THRIVE Score: 0 AUDIT C Alcohol Use Questionnaire (AUDIT-C) 1. How often do you have a drink containing alcohol?: Never 3. How often do you have six or more drinks on one occasion?: Never Total Score: 0 RAYO-7 AMB Questionnaire RAYO-7 Date RAYO - 7 assessed: 11/29/24 Feeling nervous, anxious, or on edge: 0 = Not at all Not being able to stop or control worryin = Not at all Worrying too much about different things: 0 = Not at all Trouble relaxin = Not at all Being so restless that it is hard to sit still: 0 = Not at all Becoming easily annoyed or irritable: 0 = Not at all Feeling afraid as if something awful might happen: 0 = Not at all Total RAYO-7 score (0-4 normal; 5-9 mild; 10-14 moderate; 15-21 severe): 0 Source: Developed by Drs. Lele Cabrera, Kathryn Tate, Colin Ponce and colleagues, with an educational anastacia from [employer]. RAYO-7 Assessment Billing RAYO-7 Assessment Tool: RAYO-7 Assessment 82183 Review of Systems Const All systems reviewed & are unremarkable except as noted in HPI and below Eyes Reports no additional complaints ENT Reports no additional complaints Card Reports no additional complaints Resp Reports no additional complaints GI Reports no additional complaints Physical exam (Primary Care) Vital Signs: Last Vital Signs Pulse 68 11/29/24 13:50 BP 124/76 11/29/24 13:50 Pulse Ox 95 11/29/24 13:50 Oxygen Delivery Method Room Air 11/29/24 13:50 BMI result Body Mass Index 31.4 Tobacco/Smoking Status: Tobacco use Status Tobacco use date assessed 11/29/24 11/29/24 14:10 Patient Tobacco Use Status Never used Tobacco 11/29/24 13:52 e-Cigarette/Vaping Use Never Used 11/29/24 13:52 PHQ-9: PHQ-9 Score PHQ-9: Total score 0 11/29/24 14:10 Depression Screening Interpretation: Negative Thrive Assessment: Date of Thrive Assessment Date Thrive assessed 11/29/24 11/29/24 14:10 Currently or been in a relationship where the following occur: I choose not to answer Eyes General: appearance normal, both eyes and all related structures Neck Neck: Yes no lymphadenopathy and Yes supple Resp Effort & Inspection: normal respiratory effort Auscultation: clear to auscultation bilaterally Cardio Rhythm: regular rhythm Heart sounds: S1 normal heart sound present and S2 normal heart sound present GI Inspection: Yes normal to inspection Coding Level of Care Code Est Pt Level 4 (49681) Complex EM visit Add On G2211 Diagnoses Anemia D64.9 Anxiety F41.9 Hyperlipemia E78.5 Hypothyroid E03.9 Tremor R25.1 Additional Codes RAYO-7 Assessment Billing - RAYO-7 Assessment Tool: RAYO-7 Assessment 92928 ([id number]) PHQ-9 - 97441 - PHQ-9 Billing: Yes ([id number]) Assessment & Plan Assessment & Plan (1) Anemia: Code(s): D64.9 - Anemia, unspecified Category: Medical Plan: Repeat CBC iron studies and B12 level (2) Anxiety: Comment: On multiple medications Code(s): F41.9 - Anxiety disorder, unspecified Category: Medical Plan: Continue citalopram mirtazapine and trazodone as needed. Stress management and regular physical activity discussed with the patient (3) Hyperlipemia: Code(s): E78.5 - Hyperlipidemia, unspecified Category: Medical Plan: Continue statin (4) Hypothyroid: Code(s): E03.9 - Hypothyroidism, unspecified Category: Medical Plan: Continue levothyroxine (5) Tremor: Comment: Established with Neurology Code(s): R25.1 - Tremor, unspecified Category: Medical Plan: Controlled on primidone, follow-up with neurology Orders: Orders Comprehensive [place]. Panel Fast 4 Months D64.9 - Anemia, unspecified, E03.9 - Hypothyroidism, unspecified, E55.9 - Vitamin D deficiency, unspecified, E78.5 - Hyperlipidemia, unspecified Complete Blood Count Auto Diff 4 Months D64.9 - Anemia, unspecified, E03.9 - Hypothyroidism, unspecified, E55.9 - Vitamin D deficiency, unspecified, E78.5 - Hyperlipidemia, unspecified TSH reflex Free T4 4 Months D64.9 - Anemia, unspecified, E03.9 - Hypothyroidism, unspecified, E55.9 - Vitamin D deficiency, unspecified, E78.5 - Hyperlipidemia, unspecified Vitamin D 25-OH Total 4 Months D64.9 - Anemia, unspecified, E03.9 - Hypothyroidism, unspecified, E55.9 - Vitamin D deficiency, unspecified, E78.5 - Hyperlipidemia, unspecified Complete Blood Count Auto Diff Today D64.9 - Anemia, unspecified IRON PROFILE Today D64.9 - Anemia, unspecified Vitamin B12 and Folate Today D64.9 - Anemia, unspecified Medications: Changed From citalopram 1 tab PO DAILY To citalopram 20 mg PO DAILY 90 tabs 3RF From mirtazapine 1 tab PO DAILY To mirtazapine 15 mg PO DAILY 90 tabs 1RF From trazodone 1 tab PO BEDTIME To trazodone 50 mg PO BEDTIME PRN 90 tabs 0RF sleep From levothyroxine 1 tab PO DAILY To levothyroxine 88 mcg PO DAILY 90 tabs 3RF Refilled atorvastatin 10 mg PO DAILY 90 tabs 3RF
== END 2024-11-29 14:55 | disposition home or self-care (01) ==
PROVIDERS: PCP Internal Medicine; Visit Provider Internal Medicine
DX: D64.9 Anemia, unspecified (principal); F41.9 Anxiety disorder, unspecified; E78.5 Hyperlipidemia, unspecified; E03.9 Hypothyroidism, unspecified; R25.1 Tremor, unspecified

== ENCOUNTER 2024-11-29 13:47 | Outpatient (REF) | payer MEDICARE, OTHER, SELFPAY ==
[2024-11-29 15:58] LABS: MANUAL DIFF FLAG NO
[2024-11-29 16:09] LABS: Basophils Percent Auto 0.3 % (0-2); Eosinophils Absolute Auto 0.1 X10*3/uL (0.0-0.4); Eosinophils Percent Auto 0.9 % (0-4); Hematocrit 31.4 % (37.0-47.0); Hemoglobin 10.1 g/dl (12.0-16.0); Imm Gran Abs Auto 0.01 X10*3/uL (0.00-0.03); Imm Gran Pct Auto 0.2 % (0.0-0.4); Lymphocytes Absolute Auto 1.4 X10*3/uL (1.2-4.9); Lymphocytes Percent Auto 21.5 % (20-40); Mean Corpuscular HGB Conc 32.2 g/dl (31.0-35.0); Mean Corpuscular Hemoglobin 29.9 pg (27.0-33.0); Mean Corpuscular Volume 92.9 fL (80.0-98.0); Mean Platelet Volume 10.9 fL (9.4-12.3); Monocytes Absolute Auto 0.6 X10*3/uL (0.1-1.2); Monocytes Percent Auto 9.8 % (2-11); Neutrophils Absolute Auto 4.3 x10*3/uL (2.0-8.3); Neutrophils Percent Auto 67.3 % (45-73); Platelet Count 280 X10*3/uL (160-400); Red Blood Count 3.38 X10*6/uL (4.20-5.50); Red Cell Distribution Width 14.4 % (11.0-16.0); White Blood Count 6.3 X10*3/uL (4.8-10.8)
[2024-11-29 16:32] LABS: Iron 33 mcg/dL (30-160); Percent Iron Saturation 11 % (15-50); Total Iron Binding Capacity 289 mcg/dL (228-428); Unsaturated Iron Binding 256 ug/dL
[2024-11-29 17:06] LABS: Folate 12.2 ng/mL (> or = 4.0); Vitamin B12 387 pg/mL (200-900)
== END 2024-11-29 13:48 | disposition home or self-care (01) ==
LOC: HO.HMGCLDS 13:47
PROVIDERS: PCP Internal Medicine; Visit Provider Internal Medicine
DX: D64.9 Anemia, unspecified (principal); E55.9 Vitamin D deficiency, unspecified; E03.9 Hypothyroidism, unspecified; F41.9 Anxiety disorder, unspecified; E78.5 Hyperlipidemia, unspecified; R25.1 Tremor, unspecified
CPT/HCPCS: 36415; 82607; 82746; 83540; 85025; 96127; 99212

== ENCOUNTER 2025-04-05 11:19 | Outpatient (REF) | payer MEDICARE, MEDICAID, SELFPAY ==
[2025-04-05 16:12] LABS: MANUAL DIFF FLAG NO
[2025-04-05 16:26] LABS: Basophils Percent Auto 0.4 % (0-2); Eosinophils Absolute Auto 0.1 X10*3/uL (0.0-0.4); Eosinophils Percent Auto 1.1 % (0-4); Hematocrit 37.7 % (37.0-47.0); Hemoglobin 12.2 g/dl (12.0-16.0); Imm Gran Abs Auto 0.01 X10*3/uL (0.00-0.03); Imm Gran Pct Auto 0.2 % (0.0-0.4); Lymphocytes Absolute Auto 1.6 X10*3/uL (1.2-4.9); Lymphocytes Percent Auto 28.9 % (20-40); Mean Corpuscular HGB Conc 32.4 g/dl (31.0-35.0); Mean Corpuscular Hemoglobin 29.9 pg (27.0-33.0); Mean Corpuscular Volume 92.4 fL (80.0-98.0); Mean Platelet Volume 11.6 fL (9.4-12.3); Monocytes Absolute Auto 0.5 X10*3/uL (0.1-1.2); Monocytes Percent Auto 9.2 % (2-11); Neutrophils Absolute Auto 3.3 x10*3/uL (2.0-8.3); Neutrophils Percent Auto 60.2 % (45-73); Platelet Count 204 X10*3/uL (160-400); Red Blood Count 4.08 X10*6/uL (4.20-5.50); Red Cell Distribution Width 16.8 % (11.0-16.0); White Blood Count 5.5 X10*3/uL (4.8-10.8)
[2025-04-05 18:36] LABS: Alanine Aminotransferase 29 U/L (0-31); Albumin Level 4.3 g/dL (3.5-5.0); Alkaline Phosphatase 84 U/L (39-117); Anion Gap 14 (12-20); Aspartate Amino Transferase 31 U/L (5-31); Bilirubin Total 0.4 mg/dL (0.0-1.0); Blood Urea Nitrogen 15 mg/dL (9-16); C Reactive Protein 0.25 mg/dL (< or = 0.50); Calcium 9.7 mg/dL (8.4-10.2); Carbon Dioxide 28 mmol/L (22-29); Chloride 103 mmol/L (96-108); Estimated Glomerular Filt Rate > 60; Glucose Fasting 82 mg/dL (60-99); Glucose Random 82 mg/dL (60-115); Iron 96 mcg/dL (30-160); Percent Iron Saturation 42 % (15-50); Potassium 4.4 mmol/L (3.3-5.1); Sodium 141 mmol/L (135-145); Total Iron Binding Capacity 231 mcg/dL (228-428); Total Protein 7.3 g/dL (6.5-8.0); Unsaturated Iron Binding 135 ug/dL
[2025-04-05 18:53] LABS: TSH reflex Free T4 0.17 uIU/mL (0.32-4.0); Vitamin D 25-OH Total 54.2 ng/mL (>30)
[2025-04-05 20:08] LABS: Free T4 (Free Thyroxine) 1.19 ng/dL (0.71-1.85)
[2025-04-10 10:43] LABS: IgA 263 mg/dL (70-320); IgG 1178 mg/dL (600-1540); IgM 56 mg/dL (50-300)
== END 2025-04-05 11:20 | disposition home or self-care (01) ==
LOC: HO.HMGCLDS 11:19
PROVIDERS: PCP Internal Medicine; Visit Provider Internal Medicine
DX: D64.9 Anemia, unspecified (principal); E78.5 Hyperlipidemia, unspecified; E03.9 Hypothyroidism, unspecified; R63.4 Abnormal weight loss; Z68.28 Body mass index [BMI] 28.0-28.9, adult; E55.9 Vitamin D deficiency, unspecified
CPT/HCPCS: 36415; 80053; 82306; 82784; 83540; 84439; 84443; 85025; 86140; 86334; 99212

== ENCOUNTER 2025-04-05 11:19 | Outpatient (AMB) | payer MEDICARE, MEDICAID, SELFPAY ==
--- NOTE | 2025-04-05 11:28 | MHC.PC.OV ---
Vital Signs 04/05/25 11:41 Height 5 ft 1 in Weight 153 lb BMI 28.9 BP 124/76 Blood Pressure Location Rt brachial Position Sitting Respiration 20 Pulse 68 Pulse Source Pulse Oximeter Pulse Oximetry (%) 95 Oxygen Delivery Method Room Air Intake Visit Reasons: 4 months follow up Intake Note: Pt is here today for 4 months follow up visit. Allergies No Known Allergies [No Known Allergies*] Allergy (Mild, Verified 04/05/25 11:47) NOT APPLICABLE Medication List - Last Reconciled 04/05/25 by Radha Herrera MD acetaminophen 500 mg PO Q6H PRN [aspirin 81 mg PO DAILY] atorvastatin 10 mg PO DAILY citalopram 20 mg PO DAILY [diclofenac sodium 1% gel 2 grams 3 x daily] levothyroxine 88 mcg PO DAILY [magnesium 250 mg PO DAILY] mirtazapine 15 mg PO DAILY [multivitamin 1 tab PO DAILY] [nystatin 1 appl topical BID] nystatin 1 appl topical BID primidone 100 mg PO .qd [solifenacin 5 mg PO BEDTIME] solifenacin 10 mg PO DAILY trazodone 50 mg PO BEDTIME PRN [Vitamin D3 1,000 multiple units PO DAILY] Tobacco use date assessed: 04/05/25 Fall risk assessment: No Falls in past year Last assessed Fall Risk: 04/05/25 Dental Screening Dental Screen Date: 11/29/24 HPI 4 months follow up HPI Details Patient presents for the follow-up on hyperlipidemia chronic depression hypothyroidism. Patient reports unintended weight loss for the last 6 months. She denies any change in her appetite. Patient has been eating 3 meals a day but she lives alone and occasionally eats convenient processed foods like crackers. She denies abdominal pain nausea vomiting change in bowel habits cough chest pain night sweats fever chills [facility] Medical History Hx of fracture of wrist Seizure Overactive bladder Hypothyroid Anxiety Depressed High cholesterol Surgical History History of shoulder surgery Family History Father Heart attack Mother Heart attack Social History Housing: Assisted Living Facility Alcohol intake: never Patient Tobacco Use Status: Never used Tobacco e-Cigarette/Vaping Use: Never Used Advance Directives Date on File: 03/06/21 service: No Current occupational status: retired Cognitive needs: No Hearing needs: No Vision needs: No Questionnaire Thrive Questionnaire Date Thrive assessed: 11/29/24 I am a: Patient What is your living situation today?: I have a steady place to live Within the past 12 months, did the food you bought not last and you didn't have the money to get more?: I choose not to answer this question Within the past 12 months, did you worry whether your food would run out before you got money to buy more?: I choose not to answer this question Do you have trouble paying for medicines?: No Do you have trouble getting transportation to medical appointments?: No Do you have trouble paying your heating and electricity bill?: No Do you have trouble taking care of your child, family member or friend?: I choose not to answer this question Do you have trouble with day-to-day activities such as bathing, preparing meals, shopping, managing finances, etc.?: No Are you currently unemployed and looking for a job?: Yes Are you interested in more education?: No Please select the resources that you would like help with: None Currently or been in a relationship where the following occur: I choose not to answer THRIVE Score: 0 RAYO-7 AMB Questionnaire RAYO-7 Date RAYO - 7 assessed: 11/29/24 Source: Developed by Drs. Lele Cabrera, Kathryn Tate, Colin Ponce and colleagues, with an educational anastacia from [employer]. Review of Systems Const All systems reviewed & are unremarkable except as noted in HPI and below Eyes Reports no additional complaints ENT Reports no additional complaints Card Reports no additional complaints Resp Reports no additional complaints GI Reports no additional complaints Reports no additional complaints Physical exam (Primary Care) Vital Signs: Last Vital Signs Pulse 68 04/05/25 11:41 Resp 20 04/05/25 11:41 BP 124/76 04/05/25 11:41 Pulse Ox 95 04/05/25 11:41 Oxygen Delivery Method Room Air 04/05/25 11:41 BMI result Body Mass Index 28.9 Tobacco/Smoking Status: Tobacco use Status Tobacco use date assessed 04/05/25 04/05/25 11:48 Patient Tobacco Use Status Never used Tobacco 04/05/25 11:28 e-Cigarette/Vaping Use Never Used 04/05/25 11:28 Thrive Assessment: Date of Thrive Assessment Date Thrive assessed 11/29/24 04/05/25 11:28 Currently or been in a relationship where the following occur: I choose not to answer Const General: no acute distress HENMT Head: Yes normal to inspection Face and sinus: Yes normal facial exam Eyes General: appearance normal, both eyes and all related structures Neck Neck: Yes no lymphadenopathy and Yes supple Resp Effort & Inspection: normal respiratory effort Auscultation: clear to auscultation bilaterally Cardio Rhythm: regular rhythm Heart sounds: S1 normal heart sound present and S2 normal heart sound present GI Inspection: Yes normal to inspection Palpation (GI): Soft to palpation Percussion: Yes normal to percussion Auscultation: normal bowel sounds Coding Level of Care Code Est Pt Level 4 (12815) Diagnoses Anemia D64.9 Hyperlipemia E78.5 Hypothyroid E03.9 Weight loss R63.4 Assessment & Plan Assessment & Plan (1) Anemia: Code(s): D64.9 - Anemia, unspecified Category: Medical Plan: To be check CBC and iron count on iron sulfate (2) Hyperlipemia: Code(s): E78.5 - Hyperlipidemia, unspecified Category: Medical Plan: Continue statin (3) Hypothyroid: Code(s): E03.9 - Hypothyroidism, unspecified Category: Medical Plan: Check TSH and continue levothyroxine (4) Weight loss: Code(s): R63.4 - Abnormal weight loss Category: Medical Plan: Increasing caloric intake and well-balanced diet discussed with the patient. Follow-up in 3 months Orders: Orders IRON PROFILE Today D64.9 - Anemia, unspecified, E03.9 - Hypothyroidism, unspecified, E78.5 - Hyperlipidemia, unspecified, R63.4 - Abnormal weight loss Comprehensive Met. Panel Today D64.9 - Anemia, unspecified, E03.9 - Hypothyroidism, unspecified, E78.5 - Hyperlipidemia, unspecified, R63.4 - Abnormal weight loss Immunofixation Pnl, Serum Today D64.9 - Anemia, unspecified, E03.9 - Hypothyroidism, unspecified, E78.5 - Hyperlipidemia, unspecified, R63.4 - Abnormal weight loss XR chest 1V Today D64.9 - Anemia, unspecified, E03.9 - Hypothyroidism, unspecified, E78.5 - Hyperlipidemia, unspecified, R63.4 - Abnormal weight loss Complete Blood Count Auto Diff Today D64.9 - Anemia, unspecified, E03.9 - Hypothyroidism, unspecified, E78.5 - Hyperlipidemia, unspecified, R63.4 - Abnormal weight loss C Reactive Protein Today D64.9 - Anemia, unspecified, E03.9 - Hypothyroidism, unspecified, E78.5 - Hyperlipidemia, unspecified, R63.4 - Abnormal weight loss TSH reflex Free T4 Today D64.9 - Anemia, unspecified, E03.9 - Hypothyroidism, unspecified, E78.5 - Hyperlipidemia, unspecified, R63.4 - Abnormal weight loss
[2025-04-05 11:41] VITALS: BP 124/76; PULSE 68; RESP 20; O2SAT 95; BMI 28.9
== END 2025-04-05 12:37 | disposition home or self-care (01) ==
LOC: HO.HMCC 11:19
PROVIDERS: PCP Internal Medicine; Visit Provider Internal Medicine
DX: D64.9 Anemia, unspecified (principal); E78.5 Hyperlipidemia, unspecified; E03.9 Hypothyroidism, unspecified; R63.4 Abnormal weight loss

== ENCOUNTER 2025-04-12 12:15 | Outpatient (REF) | payer MEDICARE, MEDICAID, SELFPAY ==
--- NOTE | ~2025-04-12 | XR_ITS ---
EXAMINATION: XR CHEST CLINICAL INFORMATION: D64.9 - Anemia, unspecified COMPARISON: 08/28/2019. TECHNIQUE: 2 views of the chest were obtained. FINDINGS: Mild cardiac enlargement. Mediastinal and hilar contours appear normal. Aortic mural calcifications. The lungs are diffusely hyperaerated, however clear bilaterally. There is no pneumothorax or pleural effusion. There is no focal osseous or soft tissue abnormality. Degenerative changes of the shoulder joints and spine. XR/XR chest 2V IMPRESSION: Hyperaerated lung parenchyma without active pulmonary disease. Electronically signed by: Quintin Luevano MD 04/12/2025 01:00 PM EDT
== END 2025-04-12 12:16 | disposition home or self-care (01) ==
LOC: HO.HMGCX 12:15
PROVIDERS: PCP Internal Medicine; Visit Provider Internal Medicine
DX: D64.9 Anemia, unspecified (principal); E78.5 Hyperlipidemia, unspecified; E03.9 Hypothyroidism, unspecified; R63.4 Abnormal weight loss
CPT/HCPCS: 71046

== ENCOUNTER → 2025-04-12 12:20 | Outpatient (BNV) | payer MEDICARE, MEDICAID, SELFPAY | PROVIDERS: PCP Internal Medicine; Visit Provider Radiology Diagnostic Radiology | DX: J43.9 Emphysema, unspecified (principal) | CPT/HCPCS: 71046 ==

== ENCOUNTER 2025-07-18 12:48 | Outpatient (REF) | payer MEDICARE, MEDICAID, SELFPAY ==
--- OUTSIDE RECORDS SUMMARY | 2025-07-18 13:08 | XMS_ITS | Patient Health Record ---
Author Organization [facility] Address [address] [place] [address] Care Team Providers Care Associate Scientist Name Role Phone Marcela MERINO, Krystal Primary Care Provider Lele Abbasi [phone] Reason For Referral No Information Medications Medication SIG (Take, Route, Frequency, Duration) Notes Start Date End Date Status Primidone 50mg Activ e Aspirin 81 MG 1 tablet Orally Once a day for 30 day(s) Active Divalproex Sodium 500mg Active Atorvastatin Calcium 10mg Active Lisinopril 5mg Activ e Citalopram Hydrobromide 40mg Active clonazePAM 0.5mg Act soraya Levothyroxine Sodium 88mcg Active Problems Problem Type SNOMED Code ICD Code Onset Dates Problem Status W/U Status Risk Notes Problem Colon cancer screening (067665826) Colon cancer screening (V76.51) Active confirmed Problem Anemia (568130504) Anemia (285.9) Active confirmed Plan Of Treatment Future Test Test Name Order Date COLONOSCOPY 10/09/2013 Insurance Providers Payer Name Payer Address Payer Phone Subscriber Number Group Number Insured Name Patient Relationship to Insured Coverage Start Date Coverage End Date MEDICARE OF [place] [address] [place] [address] [phone] [id number] ELLIOT HOWARD Self - patient is the insured MEDICAID OF [facility] [address] [place] [phone] [phone] [id number] ELLIOT HOWARD Self - patient is the insured Medical (General) History Medical History History ICD Code EGD in 06-12-2008--gastric po lyp as below, erosive gastritis and a small gastric antral ulcer-Neg. H. pylori gastric polyp-inflammatory/hyperplastic on EGD in 05/2008 hx of anemia-Hgb 11.1 in 12/30 008, and Hgb of 11.7 and MCV 96 in 08/2013, Iron of 88, Iron sat 35%, and Ferritin 99 in 08/2013--sees Dr. Prabhakar Colonoscopy 11/[address] Rojas--negativ e except internal hemorrhoids Denies MD,DM,CVA,Lung disease,renal dise ase Hypothyroidism HTN Hyperlipidemia Essential tremor Anxiety Surgical History Surgery Date(Month/Year) back surgery wrist surgery shoulder surgery
--- OUTSIDE RECORDS SUMMARY | 2025-07-18 13:08 | XMS_ITS | Encounter Summary ---
Author Organization [facility] Address [address] [place] [address] Phone Care Team Providers Care Powder Coater Name Role Phone Krystal Medrano RECREATION ESTABLISHMENT MANAGER Primary Care Provider [phone] Lydia Correa PICKLE PROCESSOR Primary Care Provider [phone] Unknown, Unknown Primary Care Provider Yaneth winn Encounter Details Date Type Department Care Team (Late st Contact Info) Description 02/06/2021 Transcribe Orders [facility] [address] [place] [address] Krystal Medrano, RECREATION ESTABLISHMENT MANAGER [address] [place] [address] [email or web address] Social History Tobacco Use Types Packs/Day Years Used Date Smoking Tobacco: Never Smokeless Tobacco: Never Alcohol Use Standard Drinks/Week Comments No 0 (1 standard drink = 0.6 oz pur e alcohol) Comments No Sex and Gender Information Value Date Recorded Sex Assigned at Not on file Legal Sex Female 10:11 PM EDT Gender Identity Not on file Sexual Orientation Not on file documented as of this encounter Plan of Treatment Not on file documented as of this encounter Visit Diagnoses Not on filedocumented in this encounter Additional Health Concerns Assessment Noted Time PHQ-2 Depression Total Score: 0 02/07/20 21 2:26 PM EST documented as of this encounter Care Teams Powder Coater Relationship Specialty Start Date End Date Krystal Medrano RECREATION ESTABLISHMENT MANAGER [email or web address] PCP - General Family Medicine 07/26/18 01/31/24 Lydia Correa, HENRI[address] [place] [address] [email or web address] PCP - General Nurse Practitioner 08/21/24 08/21/24 Unknown, Unknown, PCP - General 08/22/24 documented as of this encounter Additional Source Comments The information contained in this document represents components of the legal health record. It is not the complete legal health record.[facility]
[2025-07-18 16:59] LABS: Iron 85 mcg/dL (30-160); Percent Iron Saturation 38 % (15-50); Total Iron Binding Capacity 223 mcg/dL (228-428); Unsaturated Iron Binding 138 ug/dL
== END 2025-07-18 12:49 | disposition home or self-care (01) ==
LOC: HO.HMGCLDS 12:48
PROVIDERS: PCP Internal Medicine; Visit Provider Internal Medicine
DX: D64.9 Anemia, unspecified (principal)
CPT/HCPCS: 36415; 83540

== ENCOUNTER 2025-07-23 12:58 | Outpatient (AMB) | payer MEDICARE, MEDICAID, SELFPAY ==
[2025-07-23 13:04] VITALS: BP 124/78; PULSE 69; O2SAT 97; BMI 28.3
--- NOTE | 2025-07-23 13:04 | MHC.PC.OV ---
Vital Signs 07/23/25 13:04 Height 5 ft 1 in Weight 150 lb BMI 28.3 BP 124/78 Blood Pressure Location Lt brachial Position Sitting Pulse 69 Pulse Source Pulse Oximeter Pulse Oximetry (%) 97 Intake Visit Reasons: 3 M follow up Allergies No Known Allergies (No Known Allergies*) Allergy (Mild, Verified 07/23/25 13:04) NOT APPLICABLE Medication List - Last Reconciled 07/23/25 by Radha Herrera MD [aspirin 81 mg PO DAILY] atorvastatin 10 mg PO DAILY citalopram 20 mg PO DAILY [diclofenac sodium 1% gel 2 grams 3 x daily] levothyroxine 88 mcg PO DAILY [magnesium 250 mg PO DAILY] mirtazapine 15 mg PO DAILY [multivitamin 1 tab PO DAILY] nystatin 1 appl topical BID primidone 100 mg PO .qd solifenacin 10 mg PO DAILY trazodone 50 mg PO BEDTIME PRN [Vitamin D3 1,000 multiple units PO DAILY] Tobacco use date assessed: 04/05/25 Fall risk assessment: No Falls in past year Last assessed Fall Risk: 07/23/25 Dental Screening Dental Screen Date: 11/29/24 HPI 3 M follow up HPI Details Patient presents for a follow-up hyperlipidemia and hypothyroidism. She has been taking iron supplement for borderline low iron deficiency and ensure supplement every other day for weight loss. Patient reports good appetite and her weight has been stable since March. chronic anxiety and depression are controlled on current medications. [facility] Medical History (Updated 07/23/25 @ 13:41 by Radha Herrera MD) Tremor Anemia Hyperlipemia Hx of fracture of wrist Overactive bladder Hypothyroid Anxiety High cholesterol Surgical History History of shoulder surgery Family History Father Heart attack Mother Heart attack Social History Housing: Assisted Living Facility Alcohol intake: never Patient Tobacco Use Status: Never used Tobacco e-Cigarette/Vaping Use: Never Used Advance Directives Date on File: 03/06/21 service: No Current occupational status: retired Cognitive needs: No Hearing needs: No Vision needs: No Questionnaire Thrive Questionnaire Date Thrive assessed: 11/29/24 I am a: Patient What is your living situation today?: I have a steady place to live Within the past 12 months, did the food you bought not last and you didn't have the money to get more?: I choose not to answer this question Within the past 12 months, did you worry whether your food would run out before you got money to buy more?: I choose not to answer this question Do you have trouble paying for medicines?: No Do you have trouble getting transportation to medical appointments?: No Do you have trouble paying your heating and electricity bill?: No Do you have trouble taking care of your child, family member or friend?: I choose not to answer this question Do you have trouble with day-to-day activities such as bathing, preparing meals, shopping, managing finances, etc.?: No Are you currently unemployed and looking for a job?: Yes Are you interested in more education?: No Please select the resources that you would like help with: None Currently or been in a relationship where the following occur: I choose not to answer THRIVE Score: 0 RAYO-7 AMB Questionnaire RAYO-7 Date RAYO - 7 assessed: 11/29/24 Source: Developed by Drs. Lele Cabrera, Kathryn Tate, Colin Ponce and colleagues, with an educational anastacia from [employer]. Review of Systems Const All systems reviewed & are unremarkable except as noted in HPI and below ENT Reports no additional complaints Card Reports no additional complaints Resp Reports no additional complaints GI Reports no additional complaints Reports no additional complaints Physical exam (Primary Care) Vital Signs: Last Vital Signs Pulse 69 07/23/25 13:04 BP 124/78 07/23/25 13:04 Pulse Ox 97 07/23/25 13:04 BMI result Body Mass Index 28.3 Tobacco/Smoking Status: Tobacco use Status Tobacco use date assessed 04/05/25 07/23/25 13:11 Patient Tobacco Use Status Never used Tobacco 07/23/25 13:11 e-Cigarette/Vaping Use Never Used 07/23/25 13:11 Thrive Assessment: Date of Thrive Assessment Date Thrive assessed 11/29/24 07/23/25 13:11 Currently or been in a relationship where the following occur: I choose not to answer Const General: no acute distress HENMT Head: Yes normal to inspection Mouth: Normal oral and palatal mucosa present Neck Neck: Yes supple Resp Effort & Inspection: normal respiratory effort Auscultation: clear to auscultation bilaterally Cardio Rhythm: regular rhythm Heart sounds: S1 normal heart sound present and S2 normal heart sound present GI Inspection: Yes normal to inspection Palpation (GI): Soft to palpation Percussion: Yes normal to percussion Auscultation: normal bowel sounds Coding Level of Care Code Est Pt Level 4 (65565) Diagnoses Hypothyroid E03.9 Hyperlipemia E78.5 Vitamin D deficiency E55.9 Anemia D64.9 Assessment & Plan Assessment & Plan (1) Hypothyroid: Code(s): E03.9 - Hypothyroidism, unspecified Category: Medical Plan: Continue levothyroxine monitor TSH level (2) Hyperlipemia: Code(s): E78.5 - Hyperlipidemia, unspecified Category: Medical Plan: Continue statin (3) Vitamin D deficiency: Code(s): E55.9 - Vitamin D deficiency, unspecified Category: Medical Plan: Continue vitamin-D supplement (4) Anemia: Comment: On iron supplement twice a week Code(s): D64.9 - Anemia, unspecified Category: Medical Plan: Monitor CBC and continue iron supplement follow-up in 6 months with a fasting labs before Orders: Orders Comprehensive [place]. Panel Fast 6 Months D64.9 - Anemia, unspecified, E03.9 - Hypothyroidism, unspecified, E55.9 - Vitamin D deficiency, unspecified, E78.5 - Hyperlipidemia, unspecified TSH reflex Free T4 6 Months E03.9 - Hypothyroidism, unspecified Complete Blood Count Auto Diff 6 Months D64.9 - Anemia, unspecified, E03.9 - Hypothyroidism, unspecified, E55.9 - Vitamin D deficiency, unspecified, E78.5 - Hyperlipidemia, unspecified Lipid Panel 6 Months D64.9 - Anemia, unspecified, E03.9 - Hypothyroidism, unspecified, E55.9 - Vitamin D deficiency, unspecified, E78.5 - Hyperlipidemia, unspecified IRON PROFILE 6 Months D64.9 - Anemia, unspecified, E03.9 - Hypothyroidism, unspecified, E55.9 - Vitamin D deficiency, unspecified, E78.5 - Hyperlipidemia, unspecified Vitamin B12 and Folate 6 Months D64.9 - Anemia, unspecified, E03.9 - Hypothyroidism, unspecified, E55.9 - Vitamin D deficiency, unspecified, E78.5 - Hyperlipidemia, unspecified Medications: Refilled levothyroxine 88 mcg PO DAILY 90 tabs 3RF atorvastatin 10 mg PO DAILY 90 tabs 3RF citalopram 20 mg PO DAILY 90 tabs 3RF
--- OUTSIDE RECORDS SUMMARY | 2025-07-23 13:41 | XMS_ITS | Clinical Summary ---
Author Organization [facility] Address [address] [facility] [address] [place] [address] Phone Care Team Providers Care Eight Section Blower Name Role Phone Unknown, Unknown Primary Care Provider Yaneth labanjelica Allergies No known active allergies Medications aspirin 81 mg chewable tablet Take 1 tablet by mouth daily. 7 Active primidone (MYSOLINE) 50 MG tablet ONE DAILY Orally Twice a day Active multivitamins capsule 1 tab(s) Orally Once daily Active cholecalciferol, vitamin D3, 25 mcg (1,000 unit) capsule Take 1 capsule by mouth daily. Active magnesium 250 mg Tab Take 1 tablet by mouth nightly at bedtime. Active diclofenac sodium (VOLTAREN) 1 % Gel Apply 2 g topically 3 (three) times a day as needed. For feet 100 g 3 2 Active solifenacin (VESICARE) 5 MG tablet Take 10 mg by mouth daily. Active atorvastatin (LIPITOR) 10 MG tabletIndications: Mixed hyperlipidemia Take 1 tablet (10 mg total) by mouth daily. 90 tablet 3 3 Active citalopram (CELEXA) 20 MG tablet TAKE 1 TABLET BY MOUTH EVERY DAY 90 tablet 3 3 Active levothyroxine (SYNTHROID, LEVOTHROID) 88 MCG tabletIndications: Acquired hypothyroidism Take 1 tablet (88 mcg total) by mouth daily. 90 tablet 3 4 Active nystatin cream Apply topically 2 (two) times a day as needed. 30 g 5 4 Active mirtazapine (REMERON) 15 MG tabletIndications: Depression take 1 tablet by mouth every day 90 tablet 3 4 Active clonazePAM (KLONOPIN) 0.5 MG tabletIndications: Anxiety Take 1 tablet (0.5 mg total) by mouth 2 (two) times a day as needed for anxiety. 60 tablet 3 4 Active traZODone (DESYREL) 50 MG tabletIndications: Insomnia take 1 tablet by mouth everyday at bedtime 90 tablet 3 4 Active Active Problems Problem Noted Date Diagnosed Date Laceration of skin of face 06/15/2021 Assessment & Plan (06/15/2021 11:39 AM EDT): Patient coming in for suture removal left temporal laceration about 4 cm in length completely healed with no signs of infection. We note the patient received a tetanus shot in the ER. With the patient's consent we used a scalpel together with forceps to remove the 6 sutures. On the third and fourth suture there was a tiny bit of blood less than a milliliter that required some gauze placement and then a Band-Aid. Overall she tolerated the procedure well and can return as needed. Candidiasis of skin 08/03/2019 Acquired hypothyroidism 01/24/2018 Anxiety 01/24/2018 Benign essential tremor 01/24/2018 Lesion of brain 01/24/2018 Depression 01/24/2018 Imbalance 01/24/2018 Insomnia 01/24/2018 Mixed hyperlipidemia 01/24/2018 Overactive bladder 01/24/2018 Seizure disorder 01/24/2018 Resolved Problems Problem Noted Date Diagnosed Date Resolved Date Essential hypertension 01/24/201802/23 Immunizations Immunization Administration Dates Next Due COVID-19 (Pre-09/19) Pfizer Vaccine, mRNA, PF 04/08/2021,03/18/2021 INFLUENZA, SPLIT VIRUS, TRIV ALENT W/ PRESERVATIVE IM 08/09/2012,08/12/2011 Influenza High-Dose Quadriva lent Preservative Free IM 10/15/2022 Influenza High-Dose Trivalen t Preservative Free IM 09/15/2018,01/24/2018,09/30/2016,09/18,08/07/2014,08/22/2013 Influenza Quadrivalent Adjuv anted Preservative Free IM 10/14/2023,10/15/2021 Influenza Quadrivalent Prese rvative Free IM 09/12/2020,09/06/2019 Influenza Recombinant Maribel valent Preservative Free IM 09/12/2020 Influenza, Unspecified Formulation 09/16/2010, Pneumococcal conjugate PCV13 01/14/2017 Pneumococcal polysaccharide PPSV23 08/28/2009 Td (adult) 5 Lf Tetanus Toxo id, PF, Adsorbed 06/04/2014 Td (adult),2 Lf Tetanus Toxo id, PF, Adsorbed 09/12/2019 Tdap 10/20/2022,06/08/2021,08/03/2019 Family History Medical History Relation Comments Stroke Mother 2 Diabetes mellitus Sibling 2 Relation Status Comments Mother 1 Mother 2 Sibling 1 Sibling 2 Social History Tobacco Use Types Packs/Day Years Used Date Smoking Tobacco: Never Smokeless Tobacco: Never Alcohol Use Standard Drinks/Week Comments No 0 (1 standard drink = 0.6 oz pur e alcohol) Education Answer Date Recorded Are you interested in more education? Not on julianne e 03/25/2023 Are you concerned about learning? Not on file 03/25/2023 No 03/25/2023 No 03/25/2023 Digital Access Answer Date Recorded No 04/25/2023 No 04/25/2023 Reliable internet access at home? Not on file 04/25/2023 Device with a working camera? Not on file Intimate Partner Violence Answer Date R ecorded Denied Basic Needs Not on file 04/14/2023 In the past 12 months have y ou been in a relationship with a person who hurts, threatens, or tries to control you? No 04/14/2023 Worried food would run out Not on file 04/14 In the past 12 months have y ou been in a relationship with a person who hurts, threatens, or tries to control you? No 04/14/2023 Comments No Sex and Gender Information Value Date Recorded Sex Assigned at Not on file Legal Sex Female 10:11 PM EDT Gender Identity Not on file Sexual Orientation Not on file Last Filed Vital Signs Vital Sign Reading Time Taken Comments Blood Pressure 140/68 04/14/2023 12:53 PM EDT Pulse 62 04/14/2023 12:53 PM EDT Temperature 36.9 C (98.4 F) 01/28/2023 2:01 PM EST Respiratory Rate 16 04/14/2023 12:53 PM EDT Oxygen Saturation 95% 04/14/2023 12:53 PM EDT Inhaled Oxygen Concentration - - Weight 85.5 kg (188 lb 6.4 oz) 04/14/2023 12:53 PM EDT Height 152.4 cm (5') 04/14/2023 12:53 PM EDT Body Mass Index 36.79 04/14/2023 12:53 PM EDT Plan of Treatment Health Maintenance Due Date Last Done Comments ZOSTER VACCINES (1 of 2) 1992 RSV VACCINE (1 - 1-dose 75+ series) 2017 DEPRESSION SCREENING 04/14/2024 04/14/2023 TSH LEVEL 04/14/2024 04/14/2023, 03/28, 02/06/2021, Additional history exists COVID-19 VACCINE ( season) 2024 10/14/2023, 10/20/2021, 04/08/2021, Additional history exists FOLLOW UP BONE DENSITY TESTING 08/25/2025 08/25/2023, 04/14/2023, 03/07/2019, Additional history exists Adult Td,Tdap Booster 10/20/2032 10/20/2022 , 06/08/2021, 09/12/2019, Additional history exists PNEUMOCOCCAL VACCINES (50+ years) Completed 01/14/2017, 08/28/2009 OSTEOPOROSIS SCREENING INITIAL (ONE-TIME) Completed 08/25/2023, 04/14/2023, 03/07/2019, Additional history exists HEPATITIS A VACCINES Aged Out No long er eligible based on patient's age to complete this topic HIB VACCINES Aged Out No longer eligi ble based on patient's age to complete this topic MENINGOCOCCAL VACCINES (ACWY) Aged Out No longer eligible based on patient's age to complete this topic MENINGOCOCCAL VACCINES (B) Aged Out N o longer eligible based on patient's age to complete this topic Medical Devices Not on file Procedures Procedure Name Priority Date/Time Associated Diagnosis Comments HM DEXA SCAN Routine 08/25/2023 TSH Routine 04/14/2023 2:09 PM EDT Acquired hypothyroidism from Last 3 Months or Most Recently Relevant to Health Maintenance Results * HM DEXA SCAN (08/25/2023) us Krystal Medrano NP HEALTH MAINTENANCE Edited Resul t - Final * TSH (04/14/2023 2:09 PM EDT) TSH 2.92 0.27 - 4.20 uIU/mL [facility] Blood 04/14/2023 2:09 PM EDT 04/14/2023 2:13 PM EDT us Krystal Medrano NP LAB BLOOD ORDERABLES Final Resu lt [address] [address] from Last 3 Months or Most Recently Relevant to Health Maintenance Insurance MEDICARE PART A & B Member Subscriber Plan / Payer (Ef fective 1999-Present) Name:Akiko Pascual Member ID:[id number] Relation to Subscriber:Self Name:Akiko Pascual Subscriber ID:[id number] Payer ID:[id number] Group ID:Not on file Type:Medicare Address: [facility] [address] [place] [address] [facility] MEDICARE REPLACEMENT MEDICARE PART A & B Member Subscriber Plan / Payer (Ef fective 1999-Present) Name:Akiko Pascual Member ID:[id number] Relation to Subscriber:Self Name:Akiko Pascual Subscriber ID:[id number] Payer ID:[id number] Group ID:Not on file Type:Medicare Address: [employer] [address] [employer] P[employer] MEDICARE REPLACEMENT MEDICARE PART A & B [employer] P[employer] MEDICARE REPLACEMENT MEDICARE PART A & B MEDICARE REPLACEMENT MEDICARE PART A & B [facility] MEDICARE REPLACEMENT MEDICARE PART A & B [facility] [place] [id number] [place] [address] [place] [id number] Advance Directives For more information, please contact: [phone] (9AM - 5PM [facility], Tuesday-Tuesday) Documents on File Type Date Recorded Patient Vinyl Hanger Expl anation Healthcare Proxy 01/26/2019 PHI 01/26/19 Care Teams Eight Section Blower Relationship Specialty Start Date End Date Unknown, Unknown, PCP - General 08/22/24 Additional Source Comments The information contained in this document represents components of the legal health record. It is not the complete legal health record.[facility]
--- OUTSIDE RECORDS SUMMARY | 2025-07-23 13:41 | XMS_ITS | Patient Health Record ---
Author Organization [facility] Address [address] [place] [address] Care Team Providers Care Host Hostess Name Role Phone Marcela MERINO, Krystal Primary Care Provider Lele Abbasi [phone] Reason For Referral No Information Medications Medication [...] Status Risk Notes Problem Colon cancer screening (761335495) Colon cancer screening (V76.51) Active confirmed Problem Anemia (979005954) Anemia (285.9) Active confirmed Plan Of Treatment Future Test Test Name Order Date COLONOSCOPY 10/09/2013 Insurance Providers Payer Name Payer Address Payer Phone Subscriber Number Group Number Insured Name Patient Relationship to Insured Coverage Start Date Coverage End Date MEDICARE OF [place] [address] [place] [address] [id number] ELLIOT HOWARD Self - patient is the insured MEDICAID OF [facility] [address] [place] [address] [phone] [id number] ELLIOT HOWARD Self - patient is the [...] Dr Rojas--negativ e except internal hemorrhoids Denies ID,DM,CVA,Lung disease,renal dise ase Hypothyroidism HTN Hyperlipidemia Essential tremor Anxiety Surgical History Surgery Date(Month/Year) back surgery wrist surgery shoulder surgery
--- OUTSIDE RECORDS SUMMARY | 2025-07-23 13:41 | XMS_ITS | Encounter Summary ---
Author Organization [facility] Address [address] [facility] [address] [place] [address] Phone Care Team Providers Care Computer System Technician Name Role Phone Krystal Medrano ELECTRIC ORGAN CHECKER Primary Care Provider [phone] Lydia Correa MELTER CASTER Primary Care Provider [phone] Unknown, Unknown Primary Care Provider Yaneth winn Encounter Details Date Type Department Care Team (Late st Contact Info) Description 02/06/2021 Transcribe Orders [facility] Laboratory [address] [place] [address] Krystal Medrano, ELECTRIC ORGAN CHECKER [address] [facility] [address] [place] [address] [email or web address] Social History Tobacco Use Types Packs/Day Years [...] documented as of this encounter Care Teams Computer System Technician Relationship Specialty Start Date End Date Krystal Medrano ELECTRIC ORGAN CHECKER [email or web address] PCP - General Family Medicine 07/26/18 01/31/24 Lydia Correa, [address] [place] [address] [email or web address] PCP - General Nurse Practitioner 08/21/24 08/21/24 Unknown, Unknown, PCP - General 08/22/24 documented as of this encounter Additional Source Comments The information contained in this document represents components of the legal health record. It is not the complete legal health record.[facility]
== END 2025-07-23 13:42 | disposition home or self-care (01) ==
LOC: HO.HMCC 12:59
PROVIDERS: PCP Internal Medicine; Visit Provider Internal Medicine
DX: E03.9 Hypothyroidism, unspecified (principal); E78.5 Hyperlipidemia, unspecified; E55.9 Vitamin D deficiency, unspecified; D64.9 Anemia, unspecified

== ENCOUNTER → 2025-07-23 12:58 | Outpatient (BNVA) | payer MEDICARE, MEDICAID, SELFPAY | PROVIDERS: PCP Internal Medicine; Visit Provider Internal Medicine | DX: E03.9 Hypothyroidism, unspecified (principal); E78.5 Hyperlipidemia, unspecified; E55.9 Vitamin D deficiency, unspecified; D64.9 Anemia, unspecified | CPT/HCPCS: 99212 ==

== ENCOUNTER 2025-08-13 12:57 | Outpatient (AMB) | payer MEDICARE, MEDICAID, SELFPAY ==
--- NOTE | 2025-08-13 13:04 | MHC.OFFVIS ---
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 She was doing okay with no recent seizure-like episode. She has lost about 30 lb of weight and was feeling better. Tremor was still affecting her. COUNT INCLUDES [facility] Medical History (Updated 08/13/25 @ 13:07 by Radha Sullivan MD) Tremor Anemia Hyperlipemia Hx of fracture of wrist Overactive bladder Hypothyroid Anxiety High cholesterol Surgical History History of shoulder surgery Family History Father Heart attack Mother Heart attack Social History Housing: Assisted Living Facility Alcohol intake: never Patient Tobacco Use Status: Never used Tobacco e-Cigarette/Vaping Use: Never Used Advance Directives Date on File: 03/06/21 service: No Current occupational status: retired Cognitive needs: No Hearing needs: No Vision needs: No Review of Systems Const Details: Generalized tremor and difficulty walking. Physical Exam Neuro Other: She is alert and awake with normal spontaneity of speech fluency comprehension and affect. There was moderate bilateral hand tremor. She is walking cautiously with a walker. 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 Head CT w/o cont at [facility] in 2012: fronto tempo atrophy. Code(s): G40.909 - Epilepsy, unspecified, not intractable, without status epilepticus Category: Medical Plan Imperssion: a: Seizure disorder b: Tremor Rec: Primidone 50mg two a day Medications: New primidone 100 mg (2 x 50 mg) PO BEDTIME 180 tabs 1RF Coding Level of Care Code Est Pt Level 4 (32677) Diagnoses Tremor R25.1 Seizure disorder G40.909
--- OUTSIDE RECORDS SUMMARY | 2025-08-13 16:54 | XMS_ITS | Clinical Summary ---
Author Organization [facility] Address [address] [facility] [address] [place] [address] Phone Care Team Providers Care Machine Operator Transplanter Name Role Phone Unknown, Unknown Primary Care [...] 04/14/2024 04/14/2023, 03/28, 02/06/2021, Additional history exists INFLUENZA VACCINE (#1) 2025 , 10/15/2022, 10/15/2021, Additional history exists COVID-19 VACCINE ( season) 2025 10/14/2023, 10/20/2021, 04/08/2021, Additional history exists FOLLOW [...] Recently Relevant to Health Maintenance Results * DEXA SCAN (08/25/2023) us Krystal Medrano NP HEALTH MAINTENANCE Edited Resul t - Final * TSH (04/14/2023 2:09 PM EDT) TSH 2.92 0.27 - 4.20 uIU/mL [facility] Blood 04/14/2023 2:09 PM EDT 04/14/2023 2:13 PM EDT Krystal Medrano NP LAB BLOOD ORDERABLES Final Resu lt [address] [address] from Last 3 Months or Most Recently Relevant to Health Maintenance Insurance MEDICARE PART A & B [facility] MEDICARE REPLACEMENT MEDICARE PART A & B MEDICARE REPLACEMENT MEDICARE PART A & [place] [address] [place] [address] MEDICARE REPLACEMENT Member Subscriber Plan / Payer ( fective 2023-) Name:Akiko Pascual Relation to Subscriber:Self Name:Akiko Pascual Payer ID:Not on file Group ID:Not on file Type:Medicare Address: [place] [phone] MEDICARE PART A & B [facility]PL[facility] Member Subscriber Plan / Payer (Ef fective 2023-) Name:Akiko Pascual Relation to Subscriber:Self Name:Akiko Pascual Payer ID:Not on file Group ID:Not on file Type:Medicare Address: [place] [phone] MEDICARE PART A & B [facility] MEDIC[facility]PL[facility] MEDICARE PART A & B [facility] PPO MEDICARE REPLACEMENT Advance Directives For more information, please contact: [phone] (9AM - 5PM [facility], Tuesday-Tuesday) Documents on File Type Date Recorded Patient Slip Maker Expl anation Healthcare Proxy 01/26/2019 PHI 01/26/19 Care Teams Machine Operator Transplanter Relationship Specialty Start Date End Date Unknown, Unknown, PCP - General 08/22/24 Additional Source Comments The information contained in this document represents components of the legal health record. It is not the complete legal health record.[facility]
--- OUTSIDE RECORDS SUMMARY | 2025-08-13 16:54 | XMS_ITS | Patient Health Record ---
Author Organization [facility] Address [address] [place] [address] Care Team Providers Care Yarn Tester Name Role Phone Marcela MERINO, Krystal Primary Care Provider Lele Abbasi [phone] Reason For Referral No Information Medications Medication [...] Status Risk Notes Problem Colon cancer screening (187008955) Colon cancer screening (V76.51) Active confirmed Problem Anemia (261312858) Anemia (285.9) Active confirmed Plan Of Treatment Future Test Test Name Order Date COLONOSCOPY 10/09/2013 Insurance Providers Payer Name Payer Address Payer Phone Subscriber Number Group Number Insured Name Patient Relationship to Insured Coverage Start Date Coverage End Date MEDICARE OF [place] [address] [place] [address] [id number] ELLIOT HOWARD Self - patient is the insured MEDICAID OF [facility] [address] [place] [address] [id number] ELLIOT HOWARD Self - patient is the [...] Dr Rojas--negativ e except internal hemorrhoids Denies ME,DM,CVA,Lung disease,renal dise ase Hypothyroidism HTN Hyperlipidemia Essential tremor Anxiety Surgical History Surgery Date(Month/Year) back surgery wrist surgery shoulder surgery
--- OUTSIDE RECORDS SUMMARY | 2025-08-13 16:54 | XMS_ITS | Encounter Summary ---
Author Organization [facility] Address [address] [facility] [address] [place] [address] Phone Care Team Providers Care Chief Creative Officer Name Role Phone Krystal Medrano BEDSPREAD FOLDER Primary Care Provider [phone] Lydia Correa C D STRIPPER Primary Care Provider [phone] Unknown, Unknown Primary Care Provider Yaneth winn Encounter Details Date Type Department Care Team (Late st Contact Info) Description 02/06/2021 Transcribe Orders [facility] [address] [place] [address] Krystal Medrano, BEDSPREAD FOLDER [address] [facility] [address] [place] [address] [email or web address] Social History Tobacco Use Types Packs/Day Years [...] documented as of this encounter Care Teams Chief Creative Officer Relationship Specialty Start Date End Date Krystal Medrano BEDSPREAD FOLDER [email or web address] PCP - General Family Medicine 07/26/18 01/31/24 Lydia Correa, [address] [place] [address] [email or web address] PCP - General Nurse Practitioner 08/21/24 08/21/24 Unknown, Unknown, PCP - General 08/22/24 documented as of this encounter Additional Source Comments The information contained in this document represents components of the legal health record. It is not the complete legal health record.[facility]
== END 2025-08-13 13:13 | disposition home or self-care (01) ==
LOC: HO.HSM 12:57
PROVIDERS: PCP Internal Medicine; Visit Provider Psychiatry & Neurology Neurology
DX: R25.1 Tremor, unspecified (principal); G40.909 Epilepsy, unspecified, not intractable, without status epilepticus
CPT/HCPCS: 99214

== ENCOUNTER → 2025-08-13 12:57 | Outpatient (BNVA) | payer MEDICARE, MEDICAID, SELFPAY | PROVIDERS: PCP Internal Medicine; Visit Provider Psychiatry & Neurology Neurology | DX: G40.219 Localization-related (focal) (partial) symptomatic epilepsy and epileptic syndromes with complex partial seizures, intractable, without status epilepticus (principal); R25.1 Tremor, unspecified | CPT/HCPCS: 99212 ==

== ENCOUNTER 2025-08-26 12:10 | Outpatient (REF) | payer MEDICARE, MEDICAID, SELFPAY ==
--- NOTE | ~2025-08-26 | MM_ITS ---
EXAMINATION: MM SCREENING DIGITAL BREAST TOMOSYNTHESIS, BILATERAL CLINICAL INFORMATION: Screening. Asymptomatic. COMPARISON: Mammography: Comparison is made with available priors TECHNIQUE: Digital breast mammography with tomosynthesis is performed in both the craniocaudal and mediolateral oblique views along with computer-aided detection (CAD). FINDINGS: There are scattered areas of fibroglandular density. Bilateral scattered asymmetries are stable. There are no significant masses, abnormal calcifications, or other abnormalities. MM/MM tomosynthesis screening BI IMPRESSION: No mammographic evidence of malignancy. ASSESSMENT: BI-RADS Category 2: Benign RECOMMENDATION: Routine annual mammography screening. 1 year F/U This examination should not preclude the clinical evaluation of a suspicious palpable abnormality. This patient's information was entered into a reminder system with a target due date for their next mammogram. Electronically signed by: Judi Montanez DO 08/27/2025 02:19 PM EDT
--- OUTSIDE RECORDS SUMMARY | 2025-08-26 13:29 | XMS_ITS | Patient Health Record ---
Author Organization [facility] Address [address] [place] [address] Care Team Providers Care Move Coordinator Name Role Phone Marcela MERINO, Krystal Primary Care Provider Lele Abbasi [phone] Reason For Referral No Information Medications Medication [...] Status Risk Notes Problem Colon cancer screening (183075900) Colon cancer screening (V76.51) Active confirmed Problem Anemia (232545410) Anemia (285.9) Active confirmed Plan Of Treatment Future Test Test Name Order Date COLONOSCOPY 10/09/2013 Insurance Providers Payer Name Payer Address Payer Phone Subscriber Number Group Number Insured Name Patient Relationship to Insured Coverage Start Date Coverage End Date [place] OF [place] [address] [place] [address] [id number] ELLIOT HOWARD Self - patient is the insured MEDICAID OF [facility] [address] [place] [address] [id number] ELLIOT HOWARD Self - patient is the [...] Dr Rojas--negativ e except internal hemorrhoids Denies [place],DM,CVA,Lung disease,renal dise ase Hypothyroidism HTN Hyperlipidemia Essential tremor Anxiety Surgical History Surgery Date(Month/Year) back surgery wrist surgery shoulder surgery
== END 2025-08-26 12:11 | disposition home or self-care (01) ==
LOC: HO.MAMMO 12:10
PROVIDERS: Visit Provider Internal Medicine
DX: Z12.31 Encounter for screening mammogram for malignant neoplasm of breast (principal)
CPT/HCPCS: 77063; 77067

== ENCOUNTER → 2025-08-26 12:30 | Outpatient (BNV) | payer MEDICARE, MEDICAID, SELFPAY | PROVIDERS: Visit Provider Internal Medicine | DX: Z12.31 Encounter for screening mammogram for malignant neoplasm of breast (principal) | CPT/HCPCS: 77063; 77067 ==